=== PATIENT | male | born 1950 | race Caucasian/White ===

== ENCOUNTER 2016-09-27 07:10 | Outpatient (CLI) | payer MEDICARE, OTHER | END 2016-09-27 07:11 | disposition home or self-care (01) | DX: R63.4 Abnormal weight loss (principal); Z12.5 Encounter for screening for malignant neoplasm of prostate; E78.5 Hyperlipidemia, unspecified; I10 Essential (primary) hypertension | CPT/HCPCS: 36415; 80053; 80061; 85025; G0103 ==

== ENCOUNTER 2016-10-20 14:40 | Outpatient (CLI) | payer MEDICARE, OTHER | END 2016-10-20 23:59 | DX: R30.0 Dysuria (principal) ==

== ENCOUNTER 2017-04-12 07:50 | Outpatient (CLI) | payer MEDICARE, OTHER | END 2017-04-12 07:51 | disposition critical access hospital (66) | LOC: EMS 07:50 | PROVIDERS: ATTEND Surgery | DX: F41.9 Anxiety disorder, unspecified (principal) | CPT/HCPCS: A0425; A0429 ==

== ENCOUNTER 2017-04-12 08:08 | Emergency (ER) | payer MEDICARE, OTHER ==
[2017-04-12] MEDS ORDERED: clonazePAM 0.5 MG TABLET PO STA (08:18)
[2017-04-12] MEDS ORDERED: clonazePAM 0.5 MG TABLET PO ONE (08:26)
--- NOTE | 2017-04-12 10:13 | ED Physician Documentation ---
History of Present Illness - Stated complaint Stated Complaint: ANXIETY - Chief complaint Chief Complaint: General - History obtained from History obtained from: Patient, EMS - Additonal information Additional information: The patient is a 66-year-old male who arrives via ambulance from [facility] where he was anxious and requesting his antianxiety medication. He has been out of clonazepam for the past 3 days. He has been receiving all of his other medications. He denies headache, chest pain, shortness of breath. He denies abdominal pain, vomiting, or dysuria. It is unclear to me why he is out of his clonazepam, but he states there is a prescription at the pharmacy, and he just needs the medication to be delivered. Review of Systems Constitutional: denies: Fever Ears: denies: Tinnitus/ringing Nose: denies: Congestion Throat: denies: Sore throat Cardiac: denies: Chest pain / pressure Respiratory: denies: Dyspnea, Cough GI: reports: Abdominal Pain (Intermittent epigastric discomfort, consistent with gastroesophageal reflux.). denies: Nausea, Vomiting : denies: Dysuria Skin: denies: Rash Musculoskeletal: denies: Back pain, Extremity swelling Neurologic: denies: Focal weakness, Numbness, Headache Psychiatric: reports: Anxiety PD PAST MEDICAL HISTORY - Past Medical History Cardiovascular: Hypertension, High cholesterol Respiratory: None Neuro: None Endocrine/Autoimmune: None GI: GERD, Hemorrhoids, Other (Hiatal hernia, with Henriquez's esophagus.) : Other HEENT: Chronic vision loss Psych: Depression, Anxiety, Panic attacks Musculoskeletal: Gout, Fatigue Derm: None - Past Surgical History Past Surgical History: Yes General: Cholecystectomy - Present Medications Home Medications: Ambulatory Orders Medication Instructions Recorded Confirmed Clonazepam 1 mg PO BID 08/26/13 02/11/16 Lisinopril 20 mg PO BID 08/26/13 02/11/16 Simvastatin [Zocor] 20 mg PO DAILY 08/26/13 02/11/16 Escitalopram Oxalate [Lexapro] 20 mg PO DAILY 01/20/15 02/11/16 Sucralfate 1 gm PO QID #120 tablet 08/13/15 02/11/16 Loratadine [Claritin] 10 mg PO DAILY 08/18/15 02/11/16 Omeprazole [Prilosec] 20 mg PO TID 08/18/15 02/11/16 - Allergies Allergies/Adverse Reactions: Allergies Allergy/AdvReac Type Severity Reaction Status Date / Time No Known Drug Allergies Allergy Verified 04/12/17 08:19 - Living Situation Living Arrangement: reports: Assisted living - Social History Does the pt smoke?: No Smoking Status: Never smoker Does the pt drink ETOH?: Yes Does the pt have substance abuse?: No - Immunizations Immunizations are current?: Yes - POLST Patient has POLST: No PD ED PE NORMAL - Vitals Vital signs reviewed: Yes (borderline hypertension initially.) - General General: Alert and oriented X 3, No acute distress, Well developed/nourished - HEENT HEENT: Atraumatic, EOMI, Moist mucous membranes - Neck Neck: No adenopathy, No JVD - Cardiac Cardiac: RRR, No murmur - Respiratory Respiratory: No respiratory distress, Clear bilaterally - Abdomen Abdomen: Soft, Non tender, No organomegaly - Back Back: No CVA TTP - Derm Derm: No rash - Extremities Extremities: No edema, No calf tenderness / cord - Neuro Neuro: Alert and oriented X 3, No motor deficit, No sensory deficit - Psych Psych: Other (Mild anxiety.) Results - Vitals Vitals: Oxygen O2 Source Room air PD MEDICAL DECISION MAKING - ED course Complexity details: reviewed old records, re-evaluated patient, considered differential, d/w patient ED course: The patient's presentation is most consistent with mild anxiety after having gone without his daily clonazepam dose for the past 3 days. He does not appear to be in significant distress and his symptoms are not suggestive of acute withdrawal syndrome. Treatment in the emergency department included administration of clonazepam 1 mg orally. Contact was made with staff at [facility], and they confirm that the patient's medication will be delivered from the pharmacy. I discussed with him outpatient follow-up with his primary physician, as well as potentially worrisome signs or symptoms that should prompt reevaluation in the emergency department. Departure - Departure Disposition: 01 Home, Self Care Clinical Impression: Anxiety GERD (gastroesophageal reflux disease) Qualifiers: Esophagitis presence: esophagitis presence not specified Qualified Code(s): K21.9 - Gastro-esophageal reflux disease without esophagitis Condition: Stable Instructions: ED Stress React, ED GERD Follow-Up: IVAN LUONG MD [Physician No Access] - Comments: Continue taking clonazepam as previously prescribed. You can use liquid antacid, such as Maalox or Mylanta, 30 mL, as needed for epigastric discomfort. Follow up with your primary physician within 2 weeks. Call to schedule an appointment. Return to the emergency department if you develop increasing epigastric discomfort, recurrent or increasing anxiety, or otherwise worsening symptoms. Discharge Date/Time: 04/12/17 10:44
[2017-04-12 10:43] VITALS: BP 144/88
== END 2017-04-12 10:44 | disposition home or self-care (01) ==
LOC: EDUNIT# → ED 08:08
DX: F41.9 Anxiety disorder, unspecified (principal); T42.4X6A Underdosing of benzodiazepines, initial encounter; K21.9 Gastro-esophageal reflux disease without esophagitis; I10 Essential (primary) hypertension; E78.00 Pure hypercholesterolemia, unspecified; K22.70 Barrett's esophagus without dysplasia; K44.9 Diaphragmatic hernia without obstruction or gangrene; M10.9 Gout, unspecified
CPT/HCPCS: 99283; A9270

== ENCOUNTER 2017-07-16 18:33 | Outpatient (CLI) | payer MEDICARE, OTHER | END 2017-07-16 18:34 | disposition critical access hospital (66) | LOC: EMS 18:33 | PROVIDERS: ATTEND Surgery | DX: R50.9 Fever, unspecified (principal); F41.9 Anxiety disorder, unspecified | CPT/HCPCS: A0425; A0429 ==

== ENCOUNTER 2017-07-16 18:53 | Emergency (ER) | payer MEDICARE, OTHER ==
[2017-07-16] MEDS ORDERED: ACETAMINOPHEN 325 MG TABLET PO STA (18:58)
--- NOTE | 2017-07-16 18:59 | ED Physician Documentation ---
History of Present Illness - Stated complaint Stated Complaint: ANXIETY - Chief complaint Chief Complaint: General - History obtained from History obtained from: Patient, EMS - History of Present Illness Timing: Today Pain level max: 0 Pain level now: 0 Improved by: nothing Worsened by: nothing - Additonal information Additional information: Patient is a 66-year-old gentleman who lives at [place]. He states he has been coughing for the past few days, bringing up white phlegm. Started having fevers today. Denies any abdominal pain, nausea, vomiting. Review of Systems Ten Systems: 10 systems reviewed and negative Constitutional: reports: Fever Ears: denies: Ear pain Nose: reports: Rhinorrhea / runny nose, Congestion Cardiac: denies: Chest pain / pressure Respiratory: reports: Cough. denies: Dyspnea, Hemoptysis, Wheezing GI: denies: Abdominal Pain, Nausea, Vomiting, Diarrhea Skin: denies: Rash Musculoskeletal: denies: Neck pain, Back pain Neurologic: denies: Focal weakness, Numbness, Headache PD PAST MEDICAL HISTORY - Past Medical History Past Medical History: Yes Cardiovascular: Hypertension, High cholesterol Respiratory: None Neuro: None Endocrine/Autoimmune: None GI: GERD, Hemorrhoids, Other (Hiatal hernia, with Henriquez's esophagus.) : Other HEENT: Chronic vision loss Psych: Depression, Anxiety, Panic attacks Musculoskeletal: Gout, Fatigue Derm: None - Past Surgical History Past Surgical History: Yes General: Cholecystectomy - Present Medications Home Medications: Ambulatory Orders Medication Instructions Recorded Confirmed Clonazepam 1 mg PO DAILY 08/26/13 07/16/17 Simvastatin [Zocor] 20 mg PO DAILY 08/26/13 07/16/17 Sucralfate 1 gm PO QID #120 tablet 08/13/15 07/16/17 Omeprazole [Prilosec] 20 mg PO TID 08/18/15 07/16/17 Buspirone HCl 15 mg PO BID 07/16/17 07/16/17 Docusate Sodium 100 mg PO BID 07/16/17 07/16/17 Escitalopram Oxalate [Lexapro] 20 mg PO DAILY 07/16/17 07/16/17 Fluticasone [Flonase] 1 spray GEORGES BID 07/16/17 07/16/17 Lisinopril 1 tab PO DAILY 07/16/17 07/16/17 Loratadine 1 cap PO DAILY 07/16/17 07/16/17 Multivit-Min/Iron Fum/Folic AC 1 tab PO DAILY 07/16/17 07/16/17 [[id number]-[id number]-Nrlgbdqb Tablet] Tamsulosin [Flomax] 1 cap PO DAILY 07/16/17 07/16/17 - Allergies Allergies/Adverse Reactions: Allergies Allergy/AdvReac Type Severity Reaction Status Date / Time No Known Drug Allergies Allergy Verified 04/12/17 08:19 - Social History Does the pt smoke?: No Smoking Status: Never smoker Does the pt drink ETOH?: Yes Does the pt have substance abuse?: No - Immunizations Immunizations are current?: Yes - POLST Patient has POLST: No PD ED PE NORMAL - Vitals Vital signs reviewed: Yes - General General: Alert and oriented X 3, No acute distress - HEENT HEENT: Ears normal, Moist mucous membranes, Pharynx benign - Neck Neck: Supple, no meningeal sign - Cardiac Cardiac: RRR - Respiratory Respiratory: No respiratory distress, Clear bilaterally - Abdomen Abdomen: Soft, Non tender, Non distended - Derm Derm: Warm and dry - Neuro Neuro: Alert and oriented X 3 - Psych Psych: Normal mood, Normal affect Results - Vitals Vitals: Vital Signs - 24 hr 07/16/17 07/16/17 07/16/17 18:53 19:27 19:57 Temperature 38.6 C H 37.6 C H Heart Rate 100 97 Respiratory 18 17 17 Rate Blood Pressure 143/94 H 134/91 H O2 Saturation 100 100 07/16/17 21:10 Temperature Heart Rate 91 Respiratory 16 Rate Blood Pressure 127/76 O2 Saturation 97 Oxygen O2 Source Room air - Rads (name of study) cxr Radiology: Prelim report reviewed, EMP read contemporaneously, See rad report ( normal) PD MEDICAL DECISION MAKING - ED course Complexity details: reviewed results, re-evaluated patient, considered differential, d/w patient ED course: Patient is a 66-year-old male who presents to the emergency department what appears to be a viral upper respiratory infection. He is well-appearing, nontoxic. Afebrile. No hypoxia. Negative chest x-ray. We will continue supportive care and follow-up with his doctor. Patient counseled regarding signs and symptoms for which I believe and urgent re-evaluation would be necessary. Patient with good understanding of and agreement to plan and is comfortable going home at this time This document was made in part using voice recognition software. While efforts are made to proofread this document, sound alike and grammatical errors may occur. Departure - Departure Disposition: Home, Self Care Clinical Impression: Viral URI Fever Qualifiers: Fever type: unspecified Qualified Code(s): R50.9 - Fever, unspecified Condition: Good Instructions: ED Viral Syndrome Follow-Up: Heladio Cary MD [Primary Care Provider] - Within 1 week Comments: You can use motrin or tylenol as needed for fever at home. You do not have pneumonia on your chest xray today. Discharge Date/Time: 07/16/17 21:25
--- NOTE | 2017-07-16 19:31 | XRAY Preliminary Report ---
Exam: XR CHEST 2 VIEW PA/LAT IMPRESSION: Normal 2-view chest radiography. [facility] SITE ID: [id number]
--- NOTE | 2017-07-16 19:33 | XRAY Report ---
EXAM: CHEST RADIOGRAPHY EXAM DATE: 07/16/2017 07:11 PM. CLINICAL HISTORY: Cough and fever. COMPARISON: 01/04/2016. TECHNIQUE: 2 views. FINDINGS: Lungs/Pleura: No focal opacities evident. No pleural effusion. No pneumothorax. Normal volumes. Mediastinum: Heart and mediastinal contours are unremarkable. Other: No compression fractures. IMPRESSION: Normal 2-view chest radiography. [facility] Referring Provider Line: [phone] SITE ID: [id number]
[2017-07-16 21:11] VITALS: BP 127/76
== END 2017-07-16 21:25 | disposition home or self-care (01) ==
LOC: ED 18:53
DX: J06.9 Acute upper respiratory infection, unspecified (principal); B97.89 Other viral agents as the cause of diseases classified elsewhere; R50.9 Fever, unspecified; I10 Essential (primary) hypertension; E78.00 Pure hypercholesterolemia, unspecified; K21.9 Gastro-esophageal reflux disease without esophagitis; M10.9 Gout, unspecified
CPT/HCPCS: 71020; 99283; A9270

== ENCOUNTER 2017-07-30 09:48 | Outpatient (CLI) | payer MEDICARE, OTHER | END 2017-07-30 09:49 | disposition critical access hospital (66) | LOC: EMS 09:48 | PROVIDERS: ATTEND Surgery | DX: K62.5 Hemorrhage of anus and rectum (principal) | CPT/HCPCS: A0425; A0427 ==

== ENCOUNTER 2017-07-30 10:04 | Emergency (ER) | payer MEDICARE, OTHER ==
[2017-07-30 10:29] LABS: BASOPHILS % (AUTO) 0.8 %; EOSINOPHILS % (AUTO) 0.3 %; LYMPHOCYTES # (AUTO) 1.3 10^3/uL (1.5-3.5); LYMPHOCYTES % (AUTO) 27.9 %; MEAN CORPUSCULAR HEMOGLOBIN 30.5 pg (27.0-31.0); MEAN CORPUSCULAR HGB CONC 33.9 g/dL (32.0-36.0); MEAN CORPUSCULAR VOLUME 89.8 fL (80.0-94.0); MONOCYTES # (AUTO) 0.3 10^3/uL (0.0-1.0); MONOCYTES % (AUTO) 6.7 %; NEUTROPHILS # (AUTO) 2.9 10^3/uL (1.5-6.6); NEUTROPHILS % (AUTO) 64.3 %; PLT - PLATELET COUNT 372 10^3/uL (130-450); RED BLOOD COUNT 3.95 10^6/uL (4.70-6.10); RED CELL DISTRIBUTION WIDTH 13.2 % (12.0-15.0); WHITE BLOOD COUNT 4.5 x10^3/uL (4.8-10.8)
[2017-07-30 10:45] LABS: ALBUMIN 3.4 g/dL (3.2-5.5); ALBUMIN/GLOBULIN RATIO 1.2 (1.0-2.2); BILIRUBIN,TOTAL 0.4 mg/dL (0.2-1.0); CALCIUM 8.7 mg/dL (8.5-10.3); CREATININE 0.8 mg/dL (0.6-1.2); TOTAL PROTEIN 6.3 g/dL (6.7-8.2)
[2017-07-30 11:34] LABS: HGB - HEMOGLOBIN 11.3 g/dL (14.0-18.0); MEAN CORPUSCULAR HEMOGLOBIN 30.8 pg (27.0-31.0); MEAN CORPUSCULAR HGB CONC 34.5 g/dL (32.0-36.0); MEAN CORPUSCULAR VOLUME 89.3 fL (80.0-94.0); MEAN PLATELET VOLUME 7.1 fL (7.4-11.4); RED BLOOD COUNT 3.67 10^6/uL (4.70-6.10); RED CELL DISTRIBUTION WIDTH 13.1 % (12.0-15.0); WHITE BLOOD COUNT 4.8 x10^3/uL (4.8-10.8)
--- NOTE | 2017-07-30 12:47 | ED Physician Documentation ---
History of Present Illness - Stated complaint Stated Complaint: MALE - Chief complaint Chief Complaint: Abd Pain - History obtained from History obtained from: Patient - History of Present Illness Timing: Today Pain level max: 3 Pain level now: 3 Improved by: nothing Worsened by: bowl prep - Additonal information Additional information: Patient is a 66 yo M with rectal bleeding after his colonoscopy prep today. States now resolved. Had some cramping with the prep as well. This is now resolved as well. states eyes were burning last week, now resolved. Also has redness to the scrotum that is now improving with a cream from his doctor. Review of Systems Ten Systems: 10 systems reviewed and negative Constitutional: denies: Fever, Chills Ears: denies: Ear pain Nose: denies: Rhinorrhea / runny nose, Congestion Throat: denies: Sore throat Cardiac: denies: Chest pain / pressure Respiratory: denies: Cough GI: reports: Other (BRBPR today x 1). denies: Nausea, Vomiting, Diarrhea : reports: Dysuria (for 6 months, since starting flomax. no changes) Skin: denies: Rash Musculoskeletal: denies: Neck pain, Back pain PD PAST MEDICAL HISTORY - Past Medical History Cardiovascular: Hypertension, High cholesterol Respiratory: None Neuro: None Endocrine/Autoimmune: None GI: GERD, Hemorrhoids, Other : Other HEENT: Chronic vision loss Psych: Depression, Anxiety, Panic attacks Musculoskeletal: Gout, Fatigue Derm: None - Past Surgical History Past Surgical History: Yes General: Cholecystectomy - Present Medications Home Medications: Ambulatory Orders Medication Instructions Recorded Confirmed Clonazepam 1 mg PO DAILY 08/26/13 07/16/17 Simvastatin [Zocor] 20 mg PO DAILY 08/26/13 07/16/17 Sucralfate 1 gm PO QID #120 tablet 08/13/15 07/16/17 Omeprazole [Prilosec] 20 mg PO TID 08/18/15 07/16/17 Buspirone HCl 15 mg PO BID 07/16/17 07/16/17 Docusate Sodium 100 mg PO BID 07/16/17 07/16/17 Escitalopram Oxalate [Lexapro] 20 mg PO DAILY 07/16/17 07/16/17 Fluticasone [Flonase] 1 spray GEORGES BID 07/16/17 07/16/17 Lisinopril 1 tab PO DAILY 07/16/17 07/16/17 Loratadine 1 cap PO DAILY 07/16/17 07/16/17 Multivit-Min/Iron Fum/Folic AC 1 tab PO DAILY 07/16/17 07/16/17 [Vjpfj-Mytalyq-Fbnhohix Tablet] Tamsulosin [Flomax] 1 cap PO DAILY 07/16/17 07/16/17 - Allergies Allergies/Adverse Reactions: Allergies Allergy/AdvReac Type Severity Reaction Status Date / Time No Known Drug Allergies Allergy Verified 07/30/17 10:11 - Social History Does the pt smoke?: No Smoking Status: Never smoker Does the pt drink ETOH?: Yes Does the pt have substance abuse?: No - Immunizations Immunizations are current?: Yes - POLST Patient has POLST: No PD ED PE NORMAL - Vitals Vital signs reviewed: Yes - General General: Alert and oriented X 3, No acute distress, Well developed/nourished - HEENT HEENT: PERRL, Moist mucous membranes - Neck Neck: Supple, no meningeal sign - Cardiac Cardiac: RRR, Strong equal pulses - Respiratory Respiratory: No respiratory distress, Clear bilaterally - Abdomen Abdomen: Soft, Non tender, Non distended - Male Male : Other (no active scrotal bleeding, small rash present) - Rectal Rectal: Other (no active bleeding. hemoccult negative. QC passed) - Derm Derm: Warm and dry - Neuro Neuro: Alert and oriented X 3 - Psych Psych: Normal mood, Normal affect Results - Vitals Vitals: Vital Signs - 24 hr 07/30/17 07/30/17 10:06 11:59 Temperature 37 C 36.8 C Heart Rate 73 59 L Respiratory 18 20 Rate Blood Pressure 130/86 H 137/84 H O2 Saturation 100 100 Oxygen O2 Source Room air - Labs Labs: Laboratory Tests 07/30/17 07/30/17 07/30/17 10:24 10:24 10:24 WBC 4.5 L RBC 3.95 L Hgb 12.0 L Hct 35.4 L MCV 89.8 MCH 30.5 MCHC 33.9 RDW 13.2 Plt Count 372 MPV 7.0 L Neut # 2.9 Lymph # 1.3 L Luna # 0.3 Eos # 0.0 Baso # 0.0 Absolute Nucleated RBC 0.00 Nucleated RBC % 0.0 Whole Blood INR APTT 27.3 Sodium 138 Potassium 3.9 Chloride 103 Carbon Dioxide 23 Anion Gap 12.0 BUN 9 Creatinine 0.8 Estimated GFR (MDRD) 97 Glucose 115 H Calcium 8.7 Total Bilirubin 0.4 AST 21 ALT 21 Alkaline Phosphatase 49 Total Protein 6.3 L Albumin 3.4 Globulin 2.9 Albumin/Globulin Ratio 1.2 Lipase 31 Blood Type Blood Type Recheck Antibody Screen 07/30/17 07/30/17 07/30/17 10:45 11:20 11:20 WBC 4.8 RBC 3.67 L Hgb 11.3 L Hct 32.7 L MCV 89.3 MCH 30.8 MCHC 34.5 RDW 13.1 Plt Count 330 MPV 7.1 L Neut # Lymph # Luna # Eos # Baso # Absolute Nucleated RBC Nucleated RBC % Whole Blood INR APTT Sodium Potassium Chloride Carbon Dioxide Anion Gap BUN Creatinine Estimated GFR (MDRD) Glucose Calcium Total Bilirubin AST ALT Alkaline Phosphatase Total Protein Albumin Globulin Albumin/Globulin Ratio Lipase Blood Type A POSITIVE Blood Type Recheck A POSITIVE Antibody Screen NEGATIVE 07/30/17 11:20 WBC RBC Hgb Hct MCV MCH MCHC RDW Plt Count MPV Neut # Lymph # Luna # Eos # Baso # Absolute Nucleated RBC Nucleated RBC % Whole Blood INR 1.1 APTT Sodium Potassium Chloride Carbon Dioxide Anion Gap BUN Creatinine Estimated GFR (MDRD) Glucose Calcium Total Bilirubin AST ALT Alkaline Phosphatase Total Protein Albumin Globulin Albumin/Globulin Ratio Lipase Blood Type Blood Type Recheck Antibody Screen PD MEDICAL DECISION MAKING - ED course Complexity details: reviewed old records, reviewed results, re-evaluated patient , considered differential, d/w patient ED course: Patient is a 66-year-old male who complains of rectal bleeding 1 today after colonoscopy prep. No active bleeding currently. Does have small hemorrhoids on exam. He has a colonoscopy scheduled for tomorrow. Vital signs are stable. Abdomen is soft, nontender nondistended. No other acute medical issues at this time. We will have him follow-up with his doctor for further evaluation and care and follow-up with his doctor tomorrow for the colonoscopy as scheduled. Patient counseled regarding signs and symptoms for which I believe and urgent re-evaluation would be necessary. Patient with good understanding of and agreement to plan and is comfortable going home at this time This document was made in part using voice recognition software. While efforts are made to proofread this document, sound alike and grammatical errors may occur. Departure - Departure Disposition: 01 Home, Self Care Clinical Impression: Hematochezia Condition: Good Instructions: ED Hematochezia Stable Follow-Up: Heladio Cary MD [Primary Care Provider] - Within 1 week Comments: follow up tomorrow for your colonoscopy as scheduled. Return if you worsen.
[2017-07-30 13:09] VITALS: BP 151/92
== END 2017-07-30 13:16 | disposition home or self-care (01) ==
LOC: EDUNIT# → ED 10:04
DX: K92.1 Melena (principal); K64.9 Unspecified hemorrhoids; R21 Rash and other nonspecific skin eruption; I10 Essential (primary) hypertension
CPT/HCPCS: 36415; 80053; 83690; 85025; 85610; 85730; 86850; 86900; 86901; 99283; 99284

== ENCOUNTER 2017-07-31 06:55 | Day surgery (SDC) | payer MEDICARE, OTHER ==
[2017-07-31] MEDS ORDERED: LACTATED RINGERS 1,000 ML IV ONE (07:35)
[2017-07-31] MEDS ORDERED: MIDAZOLAM 2 MG/2 ML VIAL IVP ONE (08:33)
[2017-07-31] MEDS ORDERED: fentaNYL 100 MCG/2 ML VIAL IVP ONE (08:33)
[2017-07-31 10:08] VITALS: BP 126/63
== END 2017-07-31 06:56 | disposition home or self-care (01) ==
LOC: SDS 06:55
PROVIDERS: ATTEND Surgery
PROC: 0DJD8ZZ Inspection of Lower Intestinal Tract, Via Natural or Artificial Opening Endoscopic (ICD-10-PCS; principal; 2017-07-31 08:30)
DX: K92.1 Melena (principal); K64.4 Residual hemorrhoidal skin tags; K64.8 Other hemorrhoids; I10 Essential (primary) hypertension; E78.5 Hyperlipidemia, unspecified; F32.9 Major depressive disorder, single episode, unspecified; F41.9 Anxiety disorder, unspecified
CPT/HCPCS: 45378; J7120

== ENCOUNTER 2017-08-24 09:17 | Day surgery (SDC) | payer MEDICARE, OTHER ==
[2017-08-24] MEDS ORDERED: LACTATED RINGERS 1,000 ML IV ONE (10:03)
[2017-08-24] MEDS ORDERED: LIDOCAINE MPF 1%-EPI 1:200000 30 ML VIAL SUBQ ONE ×2 (10:47→10:51)
[2017-08-24] MEDS ORDERED: BUPIVACAINE 0.5% PF 30 ML VIAL INFIL ONE ×2 (10:47→10:51)
[2017-08-24] MEDS ORDERED: ACETAMINOPHEN 1,000 MG/100 ML 100 ML IV ONE (11:30)
[2017-08-24] MEDS ORDERED: ONDANSETRON 4 MG/2 ML VIAL IVP ONE (11:30)
[2017-08-24] MEDS ORDERED: ROCURONIUM 50 MG/5 ML VIAL IVP ONE (11:30)
[2017-08-24] MEDS ORDERED: fentaNYL 100 MCG/2 ML VIAL IVP ONE (11:30)
[2017-08-24] MEDS ORDERED: LIDOCAINE-MPF 2% 5 ML VIAL IM ONE (11:30)
[2017-08-24] MEDS ORDERED: NEOSTIGMINE 1 MG/1 ML 10 ML MDV IVP ONE (11:30)
[2017-08-24] MEDS ORDERED: PROPOFOL 200 MG/20 ML VIAL IVP ONE (11:30)
[2017-08-24] MEDS ORDERED: DEXAMETHASONE 4 MG/ML VIAL IVP ONE (11:30)
[2017-08-24] MEDS ORDERED: GLYCOPYRROLATE 1 MG/5 ML VIAL IVP ONE (11:30)
[2017-08-24] MEDS ORDERED: MEPERIDINE 50 MG/ML SYRINGE ONE (11:32)
[2017-08-24 13:16] VITALS: BP 148/88
--- NOTE | 2017-08-29 13:55 | OPERATIVE REPORT ---
DATE OF SERVICE: 08/24/2017 Physician: Jareth Gasca MD PREOPERATIVE DIAGNOSIS: Grade 4 bleeding hemorrhoids. POSTOPERATIVE DIAGNOSIS: Grade 4 bleeding hemorrhoids. PROCEDURES 1. Hemorrhoidectomy. 2. Rectal exam under anesthesia. OPERATING SURGEON: Jareth Gasca MD ANESTHESIA: General. INDICATION FOR PROCEDURE: Patient is a 66-year-old male who has had continuing ongoing rectal bleeding after bowel movements. On physical exam, he has a grade 4 hemorrhoidal disease located at the 12-o'clock position, with other hemorrhoids being present. He would like to undergo a hemorrhoidectomy. FINDINGS AT SURGERY: Patient had a large grade 4 hemorrhoid at the 12-o'clock position that was extensive. He also had further external hemorrhoids at the 5 and 7-o'clock position. Because of the large size of the excision at the 12-o'clock position, only this area was dealt with. This was the area that was prolapsing the worst and causing the bleeding. PROCEDURE: After informed consent was obtained, patient was taken to the operating room and placed in a supine position. General endotracheal anesthesia was administered. The patient was placed in a lithotomy position. His anal area was then prepped and draped in the usual sterile fashion. Rectal exam was then performed. The speculum was then inserted, and looked. He had large internal hemorrhoids that were located circumferentially around the anal area. He had large external hemorrhoids being present with the largest at the 12-o'clock position. A 3-0 Vicryl suture was then used to high ligate the base of the hemorrhoid once the retractor had been placed into the anal canal. A circumferential anal block was then performed using 0.25% Marcaine. An incision was then used to incise the anoderm, with the incision to include the hemorrhoid at the 12-o'clock position. The incision was carried into the anal canal and met at the sutured area. This encompassed the tissue from the 11-o'clock to the 1-o'clock position. Next, using electrocautery, the hemorrhoid was then removed from the sphincter complex. This was carried to the ligated base of the appendix, with it then being divided. Hemostasis was obtained using electrocautery. The anal canal mucosa was then sutured with the 3-0 Vicryl suture, with it being carried out onto the anoderm, leaving a small opening at its apex being open. There was no significant bleeding at this point. A dry dressing was then applied. The patient was then taken out of the lithotomy position, awakened, extubated, and taken from the operating room in stable condition. ESTIMATED BLOOD LOSS: Less than 10 mL COMPLICATIONS: None. CONDITION OF THE PATIENT AT THE END OF THE PROCEDURE: Stable. SPECIMENS: Hemorrhoidal tissue. DRAINS/PACKS: None. CLASSIFICATION OF THE WOUND: Clean/contaminated. TD: 08/27/2017 21:07
== END 2017-08-24 09:18 | disposition home or self-care (01) ==
LOC: SDS 09:17
PROVIDERS: ATTEND Surgery
PROC: 06BY0ZC Excision of Hemorrhoidal Plexus, Open Approach (ICD-10-PCS; principal; 2017-08-24 10:45)
DX: K64.3 Fourth degree hemorrhoids (principal)
CPT/HCPCS: 46260; J0131; J7120

== ENCOUNTER 2017-09-26 14:15 | Outpatient (CLI) | payer MEDICARE, OTHER ==
[2017-09-26 19:07] LABS: CREATININE 0.8 mg/dL (0.6-1.2)
== END 2017-09-26 14:16 | disposition home or self-care (01) ==
LOC: LAB.WCP 14:15
PROVIDERS: ATTEND Family Medicine
DX: R25.2 Cramp and spasm (principal)
CPT/HCPCS: 36415; 80048

== ENCOUNTER 2017-11-13 15:54 | Outpatient (CLI) | payer MEDICARE, OTHER | END 2017-11-13 15:55 | disposition EMS.NT | LOC: EMS 15:54 | PROVIDERS: ATTEND Surgery | DX: Z03.89 Encounter for observation for other suspected diseases and conditions ruled out (principal) ==

== ENCOUNTER 2018-05-10 14:24 | Outpatient (CLI) | payer MEDICARE, OTHER ==
[2018-05-10 18:46] LABS: BASOPHILS % (AUTO) 0.8 %; BILIRUBIN,URINE NEGATIVE (NEGATIVE); EOSINOPHILS # (AUTO) 0.1 10^3/uL (0.0-0.7); EOSINOPHILS % (AUTO) 1.1 %; GLUCOSE, URINE (UA) NEGATIVE (NEGATIVE); HGB - HEMOGLOBIN 12.7 g/dL (14.0-18.0); KETONES,URINE (UA) NEGATIVE (NEGATIVE); LEUKOCYTE ESTERASE, URINE NEGATIVE (NEGATIVE); LYMPHOCYTES # (AUTO) 1.5 10^3/uL (1.5-3.5); LYMPHOCYTES % (AUTO) 31.3 %; MEAN CORPUSCULAR HEMOGLOBIN 30.5 pg (27.0-31.0); MEAN CORPUSCULAR HGB CONC 33.6 g/dL (32.0-36.0); MEAN CORPUSCULAR VOLUME 90.7 fL (80.0-94.0); MEAN PLATELET VOLUME 8.2 fL (7.4-11.4); MONOCYTES # (AUTO) 0.4 10^3/uL (0.0-1.0); MONOCYTES % (AUTO) 7.4 %; NEUTROPHILS # (AUTO) 2.8 10^3/uL (1.5-6.6); NEUTROPHILS % (AUTO) 59.4 %; NITRITE,URINE NEGATIVE (NEGATIVE); OCCULT BLOOD,URINE NEGATIVE (NEGATIVE); PH,URINE 5.5 PH (5.0-7.5); PLT - PLATELET COUNT 212 10^3/uL (130-450); PROTEIN,URINE NEGATIVE (NEGATIVE); RED BLOOD COUNT 4.16 10^6/uL (4.70-6.10); RED CELL DISTRIBUTION WIDTH 13.8 % (12.0-15.0); UROBILINOGEN,URINE 0.2 (NORMAL) E.U./dL (NORMAL); WHITE BLOOD COUNT 4.8 x10^3/uL (4.8-10.8)
[2018-05-10 18:50] LABS: ALBUMIN 3.9 g/dL (3.2-5.5); ALBUMIN/GLOBULIN RATIO 1.2 (1.0-2.2); BILIRUBIN,TOTAL 0.6 mg/dL (0.2-1.0); CALCIUM 8.8 mg/dL (8.5-10.3); CREATININE 0.9 mg/dL (0.6-1.2); TOTAL PROTEIN 7.1 g/dL (6.7-8.2)
[2018-05-10 19:14] LABS: BACTERIA,URINE None Seen /HPF (None Seen); CLARITY,URINE CLEAR (CLEAR); RBC,URINE None Seen /HPF (0-5); SQUAMOUS EPITHELIAL CELL,UR NONE SEEN (<= Few)
== END 2018-05-10 14:25 | disposition home or self-care (01) ==
LOC: LAB.WCP 14:24
PROVIDERS: ATTEND Family Medicine
DX: R30.0 Dysuria (principal)
CPT/HCPCS: 36415; 80053; 81001; 85025; 87086

== ENCOUNTER 2018-05-24 09:51 | Outpatient (CLI) | payer MEDICARE, OTHER ==
[2018-05-24 13:34] LABS: CALCIUM 9.2 mg/dL (8.5-10.3); CREATININE 0.6 mg/dL (0.6-1.2)
== END 2018-05-24 09:52 | disposition home or self-care (01) ==
LOC: LAB.WCP 09:51
PROVIDERS: ATTEND Family Medicine
DX: I10 Essential (primary) hypertension (principal)
CPT/HCPCS: 36415; 80048

== ENCOUNTER 2018-06-27 08:00 | Outpatient (CLI) | payer MEDICARE, OTHER | END 2018-06-27 23:59 | disposition home or self-care (01) | LOC: LAB.WCP 08:00 | PROVIDERS: ATTEND Family Medicine | DX: R39.16 Straining to void (principal) | CPT/HCPCS: 36415; 84153 ==

== ENCOUNTER 2018-08-19 11:10 | Day surgery (SDC) | payer MEDICARE, OTHER ==
[2018-08-19] MEDS ORDERED: LACTATED RINGERS 1,000 ML IV ONE (11:23)
[2018-08-19] MEDS ORDERED: MIDAZOLAM 2 MG/2 ML VIAL IVP ONE (13:14)
[2018-08-19] MEDS ORDERED: fentaNYL 100 MCG/2 ML VIAL IVP ONE (13:14)
[2018-08-19] MEDS ORDERED: LIDO GARGLE 30 ML BOTTLE PO ONE (13:19)
[2018-08-19] MEDS ORDERED: BENZOCAINE/TETRACAINE/BUTAMBEN 20 GM TOP ONE (13:20)
[2018-08-19 13:47] VITALS: BP 127/68
== END 2018-08-19 11:11 | disposition home or self-care (01) ==
LOC: SDS 11:10
PROVIDERS: ATTEND Surgery
PROC: 0DB78ZX Excision of Stomach, Pylorus, Via Natural or Artificial Opening Endoscopic, Diagnostic (ICD-10-PCS; 2018-08-19)
PROC: 0DB58ZX Excision of Esophagus, Via Natural or Artificial Opening Endoscopic, Diagnostic (ICD-10-PCS; principal; 2018-08-19 13:00)
DX: K22.70 Barrett's esophagus without dysplasia (principal); K21.0 Gastro-esophageal reflux disease with esophagitis; K29.40 Chronic atrophic gastritis without bleeding; I10 Essential (primary) hypertension; E78.5 Hyperlipidemia, unspecified
CPT/HCPCS: 43239; 87081; A9270; J7120

== ENCOUNTER 2018-09-26 08:00 | Outpatient (CLI) | payer MEDICARE, OTHER ==
[2018-09-26 19:22] LABS: PSA FREE 0.16 ng/mL (0.16-2.81); PSA TOTAL 0.39 ng/mL (0.000-2.000)
== END 2018-09-26 23:59 ==
LOC: LAB.WCP 08:00
PROVIDERS: ATTEND Family Medicine
DX: N40.0 Benign prostatic hyperplasia without lower urinary tract symptoms (principal)
CPT/HCPCS: 36415; 84153; 84154

== ENCOUNTER 2019-04-09 08:00 | Outpatient (CLI) | payer MEDICARE, OTHER ==
[2019-04-09 18:19] LABS: BASOPHILS % (AUTO) 0.6 %; EOSINOPHILS % (AUTO) 0.6 %; HGB - HEMOGLOBIN 12.9 g/dL (14.0-18.0); LYMPHOCYTES # (AUTO) 1.8 10^3/uL (1.5-3.5); MEAN CORPUSCULAR HEMOGLOBIN 30.6 pg (27.0-31.0); MEAN CORPUSCULAR HGB CONC 32.7 g/dL (32.0-36.0); MEAN CORPUSCULAR VOLUME 93.6 fL (80.0-94.0); MEAN PLATELET VOLUME 10.7 fL (7.4-11.4); MONOCYTES # (AUTO) 0.4 10^3/uL (0.0-1.0); MONOCYTES % (AUTO) 7.4 %; NEUTROPHILS % (AUTO) 57.2 %; PLT - PLATELET COUNT 220 10^3/uL (130-450); RED BLOOD COUNT 4.21 10^6/uL (4.70-6.10); RED CELL DISTRIBUTION WIDTH 12.9 % (12.0-15.0); WHITE BLOOD COUNT 5.2 x10^3/uL (4.8-10.8)
[2019-04-09 18:45] LABS: ALBUMIN 4.1 g/dL (3.2-5.5); ALBUMIN/GLOBULIN RATIO 1.3 (1.0-2.2); ALKALINE PHOSPHATASE 57 IU/L (42-121); ALT ALANINE AMINOTRANSFERASE 17 IU/L (10-60); AST ASPARTATE AMINOTRANSFERASE 20 IU/L (10-42); BILIRUBIN,TOTAL 0.5 mg/dL (0.2-1.0); BUN - BLOOD UREA NITROGEN 14 mg/dL (6-20); CARBON DIOXIDE - CO2 33 mmol/L (21-32); CHLORIDE 100 mmol/L (101-111); CHOL/HDL RATIO 2.2 (<5.0); CHOLESTEROL 128 mg/dL; GFR - MDRD 74 (>89); GLUCOSE 101 mg/dL (70-100); HDL CHOLESTEROL 58 mg/dL; LDL CHOLESTEROL,CALCULATED 58 mg/dL; SODIUM 136 mmol/L (135-145); TOTAL PROTEIN 7.3 g/dL (6.7-8.2); VLDL CHOLESTEROL 12 mg/dL
== END 2019-04-09 23:59 | disposition home or self-care (01) ==
LOC: LAB.N 08:00
PROVIDERS: ATTEND Family Medicine
DX: E78.5 Hyperlipidemia, unspecified (principal); I10 Essential (primary) hypertension
CPT/HCPCS: 36415; 80053; 80061; 83721; 84443; 85025

== ENCOUNTER 2019-04-09 13:55 | Outpatient (CLI) | payer MEDICARE, OTHER ==
--- NOTE | 2019-04-09 19:07 | XRAY Report ---
Reason: neck and back pain Procedure Date: 04/09/2019 Accession Number: [id number] / [id number] Procedure: XRN - Cervical Spine 2 View CPT Code: FULL RESULT: EXAM: CERVICAL SPINE RADIOGRAPHY EXAM DATE: 04/09/2019 02:10 PM. CLINICAL HISTORY: Neck and back pain. COMPARISONS: None. TECHNIQUE: 3 views. FINDINGS: Alignment: Normal. No spondylolisthesis or scoliosis. Bones: The cervical vertebral bodies and posterior elements are well visualized from the skull base through C7-T1. No fractures. Some uncovertebral hypertrophic changes in the lower cervical spine. Disks: Mild disk height loss C5-C6 and C6-C7. Facets: Facet arthropathy, mild, greatest C5-C6. Soft Tissues: Normal. No prevertebral soft tissue swelling. The visualized lung apices are clear. IMPRESSION: Mild degenerative disk disease, greatest at C5-C6. No fracture or subluxation. [facility]
== END 2019-04-09 13:56 | disposition home or self-care (01) ==
LOC: DI.N 13:55
PROVIDERS: ATTEND Family Medicine
DX: M50.322 Other cervical disc degeneration at C5-C6 level (principal); E78.5 Hyperlipidemia, unspecified; I10 Essential (primary) hypertension
CPT/HCPCS: 36415; 72040; 80053; 80061; 83721; 84443; 85025

== ENCOUNTER 2019-04-16 08:45 | Outpatient (CLI) | payer MEDICARE, OTHER | END 2019-04-16 23:59 | disposition home or self-care (01) | LOC: LAB.R 08:45 | PROVIDERS: ATTEND Podiatrist | DX: L03.032 Cellulitis of left toe (principal) | CPT/HCPCS: 87070; 87077; 87181; 87205 ==

== ENCOUNTER 2019-09-04 17:47 | Outpatient (CLI) | payer MEDICARE, OTHER | END 2019-09-04 17:48 | disposition EMS.NT | LOC: EMS 17:47 | PROVIDERS: ATTEND Surgery | DX: Z71.1 Person with feared health complaint in whom no diagnosis is made (principal) ==

== ENCOUNTER 2020-08-31 07:00 | Outpatient (CLI) | payer MEDICARE, OTHER ==
[2020-08-31 18:03] LABS: BASOPHILS % (AUTO) 0.8 %; EOSINOPHILS # (AUTO) 0.1 10^3/uL (0.0-0.7); EOSINOPHILS % (AUTO) 1.8 %; HGB - HEMOGLOBIN 12.7 g/dL (14.0-18.0); LYMPHOCYTES # (AUTO) 1.7 10^3/uL (1.5-3.5); LYMPHOCYTES % (AUTO) 34.7 %; MEAN CORPUSCULAR HEMOGLOBIN 30.8 pg (27.0-31.0); MEAN CORPUSCULAR HGB CONC 31.7 g/dL (32.0-36.0); MEAN CORPUSCULAR VOLUME 97.1 fL (80.0-94.0); MEAN PLATELET VOLUME 10.8 fL (7.4-11.4); MONOCYTES # (AUTO) 0.3 10^3/uL (0.0-1.0); MONOCYTES % (AUTO) 6.8 %; NEUTROPHILS # (AUTO) 2.8 10^3/uL (1.5-6.6); NEUTROPHILS % (AUTO) 55.7 %; PLT - PLATELET COUNT 179 10^3/uL (130-450); RED BLOOD COUNT 4.13 10^6/uL (4.70-6.10); RED CELL DISTRIBUTION WIDTH 13.1 % (12.0-15.0)
[2020-08-31 18:23] LABS: ALBUMIN 3.8 g/dL (3.2-5.5); ALBUMIN/GLOBULIN RATIO 1.4 (1.0-2.2); BILIRUBIN,TOTAL 0.4 mg/dL (0.2-1.0); CALCIUM 9.1 mg/dL (8.5-10.3); CREATININE 0.9 mg/dL (0.6-1.2); TOTAL PROTEIN 6.5 g/dL (6.7-8.2)
== END 2020-08-31 23:59 | disposition home or self-care (01) ==
LOC: LAB.N 07:00
PROVIDERS: ATTEND Physician Assistant
DX: N40.0 Benign prostatic hyperplasia without lower urinary tract symptoms (principal); I10 Essential (primary) hypertension; E78.5 Hyperlipidemia, unspecified; Z12.5 Encounter for screening for malignant neoplasm of prostate
CPT/HCPCS: 36415; 80053; 84443; 85025; G0103; 84153

== ENCOUNTER 2021-09-22 10:05 | Outpatient (CLI) | payer MEDICARE, OTHER ==
--- NOTE | 2021-09-22 11:15 | Ultrasound Report ---
PROCEDURE: Bladder INDICATIONS: DIFFICULTY URINATING TECHNIQUE: Real-time scanning was performed of the kidneys and bladder, with image documentation. COMPARISON: CT abdomen and pelvis with contrast, 07/19/2014. FINDINGS: Bladder: Pre-void bladder volume is 352 mL. Post-void residual is 0 mL. Prostate is enlarged with an asymmetric volume of 42.5 cc. Miscellaneous: No free pelvic fluid. IMPRESSION: 1. Enlarged prostate. No significant post void residual in urinary bladder. Reviewed by: Ibeth Joe MD on 09/22/2021 11:13 AM PST Approved by: Ibeth Joe MD on 09/22/2021 11:13 AM PST Station ID: [id number]
== END 2021-09-22 10:06 | disposition home or self-care (01) ==
LOC: DI 10:05
PROVIDERS: ATTEND Student in an Organized Health Care Education/Training Program
DX: N40.1 Benign prostatic hyperplasia with lower urinary tract symptoms (principal); R39.11 Hesitancy of micturition

== ENCOUNTER 2023-01-29 06:37 | Outpatient (CLI) | payer MEDICARE, OTHER ==
--- NOTE | 2023-01-29 10:12 | Ultrasound Report ---
PROCEDURE: Abdomen Limited INDICATIONS: FATTY (CHANGE OF) LIVER TECHNIQUE: Real-time focused scanning was performed of the abdomen, with image documentation. COMPARISONS: None. FINDINGS: Liver: Increased liver echogenicity, commonly mild hepatic steatosis. Ischemic focus in the right he patic lobe measuring 0.5 cm. Gallbladder: Absent. Biliary ducts: Intrahepatic bile ducts are non-dilated. Extrahepatic bile duct caliber measures 5 m m. Normal is 6-7 mm or less in diameter, or 10 mm or less post-cholecystectomy. Pancreas: Visualized portions of the pancreas are sonographically normal. Right kidney: Normal in size and echotexture. Right kidney measures 9.6 cm long. No hydronephrosis o r nephrolithiasis. No solid masses. No complex renal cystic lesions which require follow-up. IMPRESSION: Mild hepatic steatosis. 5 mm hyperechoic lesion in the right inferior hepatic lobe, presumably a hemangioma in the absence of malignancy. Reviewed by: Joe Abad on 01/29/2023 10:10 AM PDT Approved by: Joe Abad on 01/29/2023 10:10 AM PDT Station ID: [id number]
== END 2023-01-29 06:38 | disposition home or self-care (01) ==
LOC: DI 06:37
PROVIDERS: ATTEND Student in an Organized Health Care Education/Training Program
DX: K76.0 Fatty (change of) liver, not elsewhere classified (principal); K76.9 Liver disease, unspecified; R19.7 Diarrhea, unspecified

== ENCOUNTER 2023-02-17 13:16 | Outpatient (CLI) | payer MEDICARE, OTHER | END 2023-02-17 23:59 | disposition critical access hospital (66) | LOC: EMS 13:16 | DX: R10.32 Left lower quadrant pain (principal); R10.814 Left lower quadrant abdominal tenderness | CPT/HCPCS: A0425; A0429 ==

== ENCOUNTER 2023-02-17 13:40 | Emergency (ER) | payer MEDICARE, OTHER ==
--- NOTE | 2023-02-17 13:56 | ED Physician Documentation ---
PD HPI ABD PAIN - Stated complaint Stated Complaint: LLQ PX - Chief complaint Chief Complaint: Abd Pain - History obtained from History obtained from: Patient - History of Present Illness Timing - onset: How many hours ago (this morning after awoke and had breakfast, onset left abd pain.), Today Timing - duration: Hours Timing - details: Gradual onset, Still present, Waxing and waning Quality: Cramping, Aching, Pain Location: LLQ Radiation: No: Lower back, Left flank Improved by: No: Laying still Worsened by: Palpation. No: Moving, Breathing Associated symptoms: No: Fever, Nausea, Vomiting, Diarrhea, Constipation (he states he has had small regular stools.) Similar symptoms before: Has not had sx before Recently seen: Not recently seen Review of Systems Constitutional: denies: Fever, Chills Cardiac: denies: Chest pain / pressure Respiratory: denies: Dyspnea, Cough GI: reports: Abdominal Pain. denies: Nausea, Vomiting, Diarrhea, Bloody / black stool : denies: Dysuria, Frequency Skin: denies: Rash PD PAST MEDICAL HISTORY - Past Medical History Cardiovascular: Hypertension Respiratory: None Endocrine/Autoimmune: None GI: GERD, Other : None HEENT: Other Psych: Anxiety Musculoskeletal: None Derm: None - Past Surgical History Past Surgical History: Yes General: Appendectomy, Other - Present Medications Home Medications: Ambulatory Orders Medication Instructions Recorded Confirmed Simvastatin [Zocor] 20 mg PO DAILY 08/26/13 08/16/18 Omeprazole [Prilosec] 20 mg PO TID 08/18/15 08/16/18 Docusate Sodium 100 mg PO BID PRN 07/16/17 08/16/18 Escitalopram Oxalate [Lexapro] 20 mg PO DAILY 07/16/17 08/16/18 Fluticasone [Flonase] 1 spray [place] BID 07/16/17 08/16/18 Loratadine 1 cap PO DAILY 07/16/17 08/16/18 Multivit-Min/Iron Fum/Folic AC 1 tab PO DAILY 07/16/17 08/16/18 [Gjqwm-Hohnohl-Nqscnbdy Tablet] Tamsulosin [Flomax] 1 cap PO DAILY 07/16/17 08/16/18 lisinopriL [Lisinopril] 1 tab PO DAILY 07/16/17 08/16/18 Buspirone HCl 30 mg PO BID 08/16/18 08/16/18 Sucralfate 1 gm PO BID 08/16/18 08/16/18 clonazePAM [Clonazepam] 2 mg PO TID 08/16/18 08/16/18 Acetaminophen 650 mg PO BID PRN 08/19/18 08/19/18 Ascorbic Acid [Vitamin C] 1,000 mg PO 08/19/18 Azelastine HCl 205.5 mcg NS BID PRN 08/19/18 08/19/18 Xczrlshtl-Cuoaihj-Oblvouqi-Pet 9 gm TP QID PRN 08/19/18 08/19/18 [Anbesol Cold Sore Ointment] Bismuth Subsalicylate [Kaopectate] 2 tab PO 08/19/18 Bismuth Subsalicylate 262 mg PO 08/19/18 [Pepto-Bismol] Ciprofloxacin/Ciprofloxa HCl 500 mg PO BID 08/19/18 08/19/18 [Ciprofloxacin ER 500 mg Tablet] Clotrimazole [Clotrimazole AF] 28 gm TP 08/19/18 Magnesium Citrate 296 ml PO 08/19/18 Polyvinyl Alcohol [Artificial 15 ml OP 08/19/18 Tears] Propranolol HCl 10 mg PO DAILY 08/19/18 08/19/18 Psyllium Husk/Aspartame [Metamucil 283 gm PO 08/19/18 Sugar-Free Powder] Trazodone HCl 50 mg PO DAILY 08/19/18 08/19/18 Triamcinolone 0.5% Cream [Kenalog 0 gm TOP BID 08/19/18 08/19/18 0.5% Cream] Witch Karyn [Preparation H] 1 each TP 08/19/18 Bisacodyl Supp [Dulcolax Supp] 10 mg IN DAILY PRN #5 supp 02/17/23 Docusate Sodium 100Mg Capsule 100 mg PO DAILY #20 cap 02/17/23 [Colace 100Mg Capsule] - Allergies Allergies/Adverse Reactions: Allergies Allergy/AdvReac Type Severity Reaction Status Date / Time No Known Drug Allergies Allergy Verified 08/21/17 14:54 - Social History Does the pt smoke?: No Smoking Status: Never smoker Does the pt drink ETOH?: Yes Does the pt have substance abuse?: No - Immunizations Immunizations are current?: Yes - POLST Patient has POLST: No PD ED PE NORMAL - Vitals Vital signs reviewed: Yes - General General: Alert and oriented X 3, No acute distress, Well developed/nourished - Neck Neck: Supple, no meningeal sign, No adenopathy - Cardiac Cardiac: RRR, No murmur - Respiratory Respiratory: Clear bilaterally - Abdomen Abdomen: Normal bowel sounds, Soft, Non distended, No organomegaly, Other (left lower to mid abd with some tenderness but no guarding, percussion nor rebound tenderness. No rash nor sores. ) - Rectal Rectal: Deferred - Back Back: No CVA TTP - Derm Derm: Normal color, Warm and dry, No rash - Extremities Extremities: No edema, No calf tenderness / cord Results - Vitals Vitals: Vital Signs - 24 hr 02/17/23 02/17/23 02/17/23 13:46 15:48 17:00 Temperature 36.7 C Heart Rate 62 61 67 Respiratory 15 18 16 Rate Blood Pressure 110/72 120/84 H 145/87 H O2 Saturation 100 100 100 Oxygen O2 Source Room air - Labs Labs: Laboratory Tests 02/17/23 02/17/23 02/17/23 14:00 14:00 15:28 WBC 4.7 L RBC 3.83 L Hgb 12.0 L Hct 36.8 L MCV 96.1 H MCH 31.3 H MCHC 32.6 RDW 13.4 Plt Count 153 MPV 10.3 Neut # (Auto) 3.0 Lymph # (Auto) 1.2 L Webb # (Auto) 0.3 Eos # (Auto) 0.1 Baso # (Auto) 0.1 Absolute Nucleated RBC 0.00 Nucleated RBC % 0.0 Sodium 138 Potassium 3.9 Chloride 104 Carbon Dioxide 32 Anion Gap 2.0 L BUN 18 Creatinine 1.0 Estimated GFR (MDRD) 73 L Glucose 122 H Calcium 9.0 Total Bilirubin 0.5 AST 26 ALT 29 Alkaline Phosphatase 56 Total Protein 6.3 L Albumin 3.7 Globulin 2.6 Albumin/Globulin Ratio 1.4 Lipase 27 Urine Color YELLOW Urine Clarity CLEAR Urine pH 5.5 Ur Specific [place] 1.020 Urine Protein NEGATIVE Urine Glucose (UA) NEGATIVE Urine Ketones NEGATIVE Urine Occult Blood NEGATIVE Urine Nitrite NEGATIVE Urine Bilirubin NEGATIVE Urine Urobilinogen 0.2 (NORMAL) Ur Leukocyte Esterase NEGATIVE Ur Microscopic Review NOT INDICATED Urine Culture Comments NOT INDICATED - Rads (name of study) abd/pelvic CT Relevant Findings:: Prelim report reviewed (no acute process seen. Copious stool in colon. ), EMP independent interpretation of test PD Medical Decision Making - ED course Complexity details: considered differential (left abd pain. Consider UTI, stone, diverticulitis, ischemic bowel (though not severely painful), other causes. Can get labs and CT. ), d/w patient Reviewed Lab Results: CT abd did not show acute abnormalitiy. there is generaous amount of stool in colon (not looking rectal impacted per se). This might be cause of the pain. He takes Mirilax daily currently. Can have him do it frequently tonight/tomorrow, and add Docusate. Perhaps dulcolax suppos but did not do that here as he needs to get ride/get back to [place] and did not want him to be having mess enroute/etc. Otherwise wbc is normal. LFT and lipase normal. Renal function at baseline. UA without infection. Departure - Departure Disposition: 01 Home, Self Care Clinical Impression: Left sided abdominal pain Constipated Qualifiers: Constipation type: unspecified constipation type Qualified Code(s): K59.00 - Constipation, unspecified Condition: Stable Record reviewed to determine appropriate education?: Yes Instructions: ED Constipation Prescriptions: Docusate Sodium 100Mg Capsule [Colace 100Mg Capsule] 100 mg PO DAILY #20 cap Bisacodyl Supp [Dulcolax Supp] 10 mg IN DAILY PRN #5 supp PRN Reason: Constipation Comments: Your pain seems likely caused by a large stool load within the colon particularly on the left side. There were no other causes of the pain identified by CT scan. Your blood tests and urine tests are normal as well. At this point I would suggest adding docusate stool softener once or twice daily to your regular medications for the next week or 2. You could also use a Dulcolax suppository daily to help with any stool buildup in the rectal area. Otherwise you state you do have MiraLAX at home and take that daily. I would suggest an extra dose this evening before bedtime and then tomorrow your usual morning dose followed by repeat dosing every 1-2 hours for the morning and afternoon until you are having soft regular stool. Tylenol every 4-6 hours as needed for pain or cramps. Continue your other usual medicines. Recheck if not improved well over the next day or 2 and return if worse. Forms: PCP List Discharge Date/Time: 02/17/23 18:21
[2023-02-17 14:08] LABS: BASOPHILS # (AUTO) 0.1 10^3/uL (0.0-0.1); BASOPHILS % (AUTO) 1.1 %; EOSINOPHILS # (AUTO) 0.1 10^3/uL (0.0-0.7); EOSINOPHILS % (AUTO) 1.1 %; HCT - HEMATOCRIT 36.8 % (42.0-52.0); LYMPHOCYTES # (AUTO) 1.2 10^3/uL (1.5-3.5); LYMPHOCYTES % (AUTO) 26.3 %; MEAN CORPUSCULAR HEMOGLOBIN 31.3 pg (27.0-31.0); MEAN CORPUSCULAR HGB CONC 32.6 g/dL (32.0-36.0); MEAN CORPUSCULAR VOLUME 96.1 fL (80.0-94.0); MEAN PLATELET VOLUME 10.3 fL (7.4-11.4); MONOCYTES # (AUTO) 0.3 10^3/uL (0.0-1.0); MONOCYTES % (AUTO) 7.3 %; PLT - PLATELET COUNT 153 10^3/uL (130-450); RED BLOOD COUNT 3.83 10^6/uL (4.70-6.10); RED CELL DISTRIBUTION WIDTH 13.4 % (12.0-15.0); WHITE BLOOD COUNT 4.7 x10^3/uL (4.8-10.8)
[2023-02-17] MEDS ORDERED: KETOROLAC 15 MG/ML VIAL IVP STA (14:23)
[2023-02-17 14:28] LABS: ALBUMIN 3.7 g/dL (3.2-5.5); ALBUMIN/GLOBULIN RATIO 1.4 (1.0-2.2); BILIRUBIN,TOTAL 0.5 mg/dL (0.2-1.0); POTASSIUM 3.9 mmol/L (3.5-4.5); TOTAL PROTEIN 6.3 g/dL (6.4-8.9)
[2023-02-17] MEDS ORDERED: iohexoL-300 100 ML VIAL ONE (14:37)
[2023-02-17] MEDS ORDERED: iohexoL-300 100 ML VIAL IVP ONE (15:21)
--- NOTE | 2023-02-17 16:23 | CT Report ---
PROCEDURE: CT abdomen pelvis with contrast INDICATIONS: LLQ pain since yesterday CONTRAST: 100ml omni 300 TECHNIQUE: After the administration of contrast, 5 mm thick sections acquired from the diaphragms to the symphys is. 5 mm thick coronal and sagittal reformats were acquired. For radiation dose reduction, the foll owing was used: automated exposure control, adjustment of mA and/or kV according to patient size. COMPARISON: July 19, 2014 FINDINGS: Image quality: Excellent. Lung bases and heart: Unremarkable. Liver: Hepatic fatty infiltration Gallbladder and biliary tree: Cholecystectomy Spleen: No splenomegaly. Pancreas: No pancreatic ductal dilation. Adrenals: No adrenal nodule. Kidneys and ureters: No hydronephrosis. No renal cystic lesion which requires follow up. No solid mas s. Bowel and peritoneum: Moderate fecal debris throughout the colon Lymph nodes: No central or retroperitoneal adenopathy. Vessels: No infrarenal aortic aneurysm. PELVIS Reproductive organs: Unremarkable. Bladder: No abnormal wall thickening, accounting for underdistension. Pelvic lymph nodes: No pelvic adenopathy by size criteria. Bones: No aggressive osseous abnormality. Other: No significant ventral or inguinal hernia. IMPRESSION: Moderate fecal debris throughout the colon. No obstruction Reviewed by: Raf Mas MD on 02/17/2023 3:22 PM SAEED Approved by: Raf Mas MD on 02/17/2023 3:22 PM AKSIVAN Station ID: [id number]
[2023-02-17 16:32] LABS: BILIRUBIN,URINE NEGATIVE (NEGATIVE); GLUCOSE, URINE (UA) NEGATIVE (NEGATIVE); KETONES,URINE (UA) NEGATIVE (NEGATIVE); LEUKOCYTE ESTERASE, URINE NEGATIVE (NEGATIVE); NITRITE,URINE NEGATIVE (NEGATIVE); OCCULT BLOOD,URINE NEGATIVE (NEGATIVE); PH,URINE 5.5 PH (5.0-7.5); PROTEIN,URINE NEGATIVE (NEGATIVE); UROBILINOGEN,URINE 0.2 (NORMAL) E.U./dL (NORMAL)
[2023-02-17 16:35] LABS: CLARITY,URINE CLEAR (CLEAR)
[2023-02-17] MEDS ORDERED: DOCUSATE SODIUM 100 MG CAPSULE PO STA (17:02)
[2023-02-17] MEDS ORDERED: LACTULOSE 10 GM /15 ML UDC PO STA (17:02)
[2023-02-17 18:24] VITALS: BP 145/87
== END 2023-02-17 18:21 | disposition home or self-care (01) ==
LOC: ED 13:40
DX: K59.00 Constipation, unspecified (principal); R10.32 Left lower quadrant pain; I12.0 Hypertensive chronic kidney disease with stage 5 chronic kidney disease or end stage renal disease; Z79.899 Other long term (current) drug therapy
CPT/HCPCS: 36415; 74177; 80053; 81003; 83690; 85025; 96374; 99284; A9270; Q9967; 81001; 87086

== ENCOUNTER 2023-10-15 12:00 | Outpatient (CLI) | payer MEDICARE, OTHER | END 2023-10-15 23:59 | disposition critical access hospital (66) | LOC: EMS 12:00 | DX: R10.31 Right lower quadrant pain (principal); R53.1 Weakness | CPT/HCPCS: A0425; A0429 ==

== ENCOUNTER 2023-10-15 12:23 | Emergency (ER) | payer MEDICARE, OTHER ==
[2023-10-15 13:06] LABS: BASOPHILS % (AUTO) 0.8 %; EOSINOPHILS # (AUTO) 0.1 10^3/uL (0.0-0.7); EOSINOPHILS % (AUTO) 1.4 %; HCT - HEMATOCRIT 38.2 % (42.0-52.0); HGB - HEMOGLOBIN 12.2 g/dL (14.0-18.0); LYMPHOCYTES # (AUTO) 1.4 10^3/uL (1.5-3.5); LYMPHOCYTES % (AUTO) 27.7 %; MEAN CORPUSCULAR HEMOGLOBIN 30.9 pg (27.0-31.0); MEAN CORPUSCULAR HGB CONC 31.9 g/dL (32.0-36.0); MEAN CORPUSCULAR VOLUME 96.7 fL (80.0-94.0); MEAN PLATELET VOLUME 10.2 fL (7.4-11.4); MONOCYTES # (AUTO) 0.3 10^3/uL (0.0-1.0); MONOCYTES % (AUTO) 6.6 %; NEUTROPHILS # (AUTO) 3.3 10^3/uL (1.5-6.6); NEUTROPHILS % (AUTO) 63.3 %; PLT - PLATELET COUNT 179 10^3/uL (130-450); RED BLOOD COUNT 3.95 10^6/uL (4.70-6.10); RED CELL DISTRIBUTION WIDTH 13.5 % (12.0-15.0); WHITE BLOOD COUNT 5.1 x10^3/uL (4.8-10.8)
[2023-10-15 13:20] LABS: ALBUMIN 3.6 g/dL (3.2-5.5); ALBUMIN/GLOBULIN RATIO 1.2 (1.0-2.2); BILIRUBIN,TOTAL 0.4 mg/dL (0.2-1.0); CALCIUM 9.4 mg/dL (8.5-10.3); POTASSIUM 4.6 mmol/L (3.5-4.5); TOTAL PROTEIN 6.6 g/dL (6.4-8.9)
--- NOTE | 2023-10-15 13:31 | ED Physician Documentation ---
PD HPI ABD PAIN - Stated complaint Stated Complaint: ABD PX - Chief complaint Chief Complaint: Abd Pain - History obtained from History obtained from: Patient - History of Present Illness Timing - onset: How many days ago (2-3) Timing - duration: Days (2-3) Timing - details: Gradual onset, Still present Quality: Cramping, Aching, Pain Location: Periumbilical, LLQ Radiation: Lower back. No: Left flank Improved by: Laying still. No: Eating Worsened by: Moving, Palpation. No: Eating, Breathing Associated symptoms: Nausea, Diarrhea (small amounts loose stool the past few days, without noted mucous nor blood.), Constipation (few days ago said he had had large firm BMs, but now the past 2-3 days with small amounts of loose stool.), Loss of appetite. No: Fever, Vomiting, Near syncope / syncope Similar symptoms before: Has not had sx before Recently seen: Clinic (went to [facility] today and referred to ER for the pain. Pt did not have easy transportation to ER, I believe.) Review of Systems Constitutional: denies: Fever, Chills Nose: denies: Rhinorrhea / runny nose, Congestion Throat: denies: Sore throat Respiratory: denies: Cough GI: reports: Abdominal Pain, Nausea. denies: Abdominal Swelling, Bloody / black stool : denies: Dysuria, Frequency PD PAST MEDICAL HISTORY - Past Medical History Past Medical History: Yes Cardiovascular: Hypertension Respiratory: None Neuro: Dementia Endocrine/Autoimmune: None GI: GERD, Other : None HEENT: Other Psych: Anxiety Musculoskeletal: None Derm: None - Past Surgical History Past Surgical History: Yes General: Appendectomy, Other - Present Medications Home Medications: Ambulatory Orders Medication Instructions Recorded Confirmed Simvastatin [Zocor] 20 mg PO DAILY 08/26/13 10/15/23 Omeprazole [Prilosec] 20 mg PO BID 08/18/15 10/15/23 Docusate Sodium 100 mg PO BID PRN 07/16/17 10/15/23 Escitalopram Oxalate [Lexapro] 20 mg PO DAILY 07/16/17 10/15/23 Fluticasone [Flonase] 1 spray GEORGES BID 07/16/17 10/15/23 Loratadine 1 cap PO DAILY 07/16/17 10/15/23 Multivit-Min/Iron Fum/Folic AC 1 tab PO DAILY 07/16/17 10/15/23 [Zonqg-Ncprynp-Vaavxmen Tablet] Tamsulosin [Flomax] 1 cap PO DAILY 07/16/17 10/15/23 Buspirone HCl 30 mg PO BID 08/16/18 10/15/23 clonazePAM [Clonazepam] 2 mg PO TID 08/16/18 10/15/23 Acetaminophen 650 mg PO BID PRN 08/19/18 10/15/23 Ascorbic Acid [Vitamin C] 1,000 mg PO DAILY 08/19/18 10/15/23 Azelastine HCl 205.5 mcg NS BID PRN 08/19/18 10/15/23 Uotjsvveq-Dxozjnr-Sobsjtjs-Pet 9 gm TP QID PRN 08/19/18 10/15/23 [Anbesol Cold Sore Ointment] Clotrimazole [Clotrimazole AF] 28 gm TP DAILY 08/19/18 10/15/23 Magnesium Citrate 296 ml PO DAILY 08/19/18 10/15/23 Polyvinyl Alcohol [Artificial 15 ml OP DAILY 08/19/18 10/15/23 Tears] Psyllium Husk/Aspartame [Metamucil 283 gm PO DAILY 08/19/18 10/15/23 Sugar-Free Powder] Trazodone HCl 50 mg PO DAILY 08/19/18 10/15/23 Amox/Clav 875/125 [Augmentin] 1 each PO BID #10 tablet 10/15/23 Clotrimazole/Betamethasone Crm 1 gm TOP BID 7 Days #15 gm 10/15/23 [Lotrisone Cream] Docusate Sodium 100Mg Capsule 100 mg PO DAILY #20 cap 10/15/23 [Colace 100Mg Capsule] Meloxicam [Mobic] 7.5 mg PO BID 7 Days #14 tablet 10/15/23 - Allergies Allergies/Adverse Reactions: Allergies Allergy/AdvReac Type Severity Reaction Status Date / Time No Known Drug Allergies Allergy Verified 10/15/23 12:34 - Social History Does the pt smoke?: No Smoking Status: Never smoker Does the pt drink ETOH?: Yes Does the pt have substance abuse?: No - Immunizations Immunizations are current?: Yes - POLST Patient has POLST: No PD ED PE NORMAL - Vitals Vital signs reviewed: Yes - General General: Alert and oriented X 3, Well developed/nourished, Other (appers in some discomfort.) - Neck Neck: Supple, no meningeal sign, No adenopathy - Cardiac Cardiac: RRR, No murmur - Respiratory Respiratory: No respiratory distress, Clear bilaterally - Abdomen Abdomen: Normal bowel sounds, Soft, Non distended, No organomegaly, Other (tender left lower abd with local guarding and some percussion tendrness. No rebound. Rest of abd not tender. Not tender right upper nor lower. ) - Derm Derm: Normal color, Warm and dry, No rash - Extremities Extremities: Normal ROM s pain, No edema, No calf tenderness / cord - Neuro Neuro: No motor deficit, No sensory deficit, Normal speech. No: Alert and oriented X 3 (person and place. Quite alert and conversant. ) Results - Vitals Vitals: Oxygen O2 Source Room air - Labs Labs: Laboratory Tests 10/15/23 10/15/23 10/15/23 13:00 13:00 14:47 WBC 5.1 RBC 3.95 L Hgb 12.2 L Hct 38.2 L MCV 96.7 H MCH 30.9 MCHC 31.9 L RDW 13.5 Plt Count 179 MPV 10.2 Neut # (Auto) 3.3 Lymph # (Auto) 1.4 L Baker # (Auto) 0.3 Eos # (Auto) 0.1 Baso # (Auto) 0.0 Absolute Nucleated RBC 0.00 Nucleated RBC % 0.0 Sodium 138 Potassium 4.6 H Chloride 104 Carbon Dioxide 32 Anion Gap 2.0 L BUN 28 H Creatinine 1.0 Estimated GFR (MDRD) 73 L Glucose 98 Calcium 9.4 Total Bilirubin 0.4 AST 17 ALT 15 Alkaline Phosphatase 50 Total Protein 6.6 Albumin 3.6 Globulin 3.0 Albumin/Globulin Ratio 1.2 Lipase 26 Urine Color YELLOW Urine Clarity CLEAR Urine pH 6.5 Ur Specific [place] 1.020 Urine Protein NEGATIVE Urine Glucose (UA) NEGATIVE Urine Ketones NEGATIVE Urine Occult Blood NEGATIVE Urine Nitrite NEGATIVE Urine Bilirubin NEGATIVE Urine Urobilinogen 1 (NORMAL) Ur Leukocyte Esterase NEGATIVE Ur Microscopic Review NOT INDICATED Urine Culture Comments NOT INDICATED - Rads (name of study) abd/pelvic CT Relevant Findings:: Prelim report reviewed (distal colonic fat stranding and wall thickening with lumen fluid c/w colitis. Proximal to that is moderate stool burden. ), EMP independent interpretation of test PD Medical Decision Making - ED course Complexity details: reviewed results, considered differential (lower abd pain progoressive for few days, with normal UA and CBC. Discussed CT with pt and mutual agreeemnt, and this showed colitis distal colon to account for pain and some soft stools, but still modeate stool burden proximal. So will treat acute colitis but also add stool softener. ), d/w patient Departure - Departure Disposition: 01 Home, Self Care Clinical Impression: Tinea cruris, Lower abdominal pain, Colitis, Constipation Condition: Stable Record reviewed to determine appropriate education?: Yes Prescriptions: Amox/Clav 875/125 [Augmentin] 1 each PO BID #10 tablet Docusate Sodium 100Mg Capsule [Colace 100Mg Capsule] 100 mg PO DAILY #20 cap Clotrimazole/Betamethasone Crm [Lotrisone Cream] 1 gm TOP BID 7 Days #15 gm Meloxicam [Mobic] 7.5 mg PO BID 7 Days #14 tablet Comments: Your CT scan is showing some inflammation of the colon in the descending and sigmoid area (acute colitis). This is some inflammation to it and can be inflammatory though more likely is some infection into the wall. Will treat this with an antibiotic called Augmentin twice daily for the next 5 days. In addition would work on the inflammation component with an anti- inflammatory. I wrote for some meloxicam twice daily for a week. The weepiness and apparent diarrhea and loose stool is coming from the inflammation in that area at the distal colon. However there is still a moderate amount of fecal load above that in the proximal intestine. As such I would have you continue with your MiraLAX daily or perhaps even twice daily for the next few days and add docusate stool softener to it as well. Stay well-hydrated. Tylenol every 4-6 hours if needed for pains. Recheck if not improving well in the next few days. I sent your prescription to the [facility] pharmacy in [place]. Follow-up with your primary care. Oh in addition the irritated red area at the upper or lower sacral area looks like a small yeast infection of the skin. I would use some Lotrisone cream on that and I added that to the prescriptions. Use that twice daily for the next week or so and it should clear. Forms: PCP List Discharge Date/Time: 10/15/23 20:27
[2023-10-15] MEDS ORDERED: iohexoL-300 100 ML VIAL ONE (14:24)
[2023-10-15] MEDS: SODIUM CHLORIDE 0.9% 1,000 ML IV STA (14:26)
[2023-10-15] MEDS: KETOROLAC 15 MG/ML VIAL IVP STA (14:26)
[2023-10-15] MEDS: clonazePAM 0.5 MG TABLET PO STA (14:45)
[2023-10-15 14:58] LABS: BILIRUBIN,URINE NEGATIVE (NEGATIVE); GLUCOSE, URINE (UA) NEGATIVE (NEGATIVE); KETONES,URINE (UA) NEGATIVE (NEGATIVE); LEUKOCYTE ESTERASE, URINE NEGATIVE (NEGATIVE); NITRITE,URINE NEGATIVE (NEGATIVE); OCCULT BLOOD,URINE NEGATIVE (NEGATIVE); PH,URINE 6.5 PH (5.0-7.5); PROTEIN,URINE NEGATIVE (NEGATIVE); UROBILINOGEN,URINE 1 (NORMAL) E.U./dL (NORMAL)
[2023-10-15 15:00] LABS: CLARITY,URINE CLEAR (CLEAR)
--- NOTE | 2023-10-15 16:06 | CT Report ---
PROCEDURE: Abdomen/Pelvis W INDICATIONS: general/left abd pain for days CONTRAST: Omni 300 100ml TECHNIQUE: After the administration of intravenous contrast, a CT scan of the abdomen and pelvis was performed. Images were recorded and evaluated at appropriate window settings. Reformats: coronal and sagittal. F or radiation dose reduction, the following was used: automated exposure control, adjustment of mA and /or kV according to patient size. COMPARISON: 02/17/2023 FINDINGS: Image quality: Diagnostic Lower chest: Unremarkable lung bases. Mild nonspecific distal esophageal wall thickening, possibly es ophagitis, consider endoscopy correlation if needed. Liver: Small hypervascular foci at the periphery in both the right lobe and the left lobe. Possible s egment 7 hemangioma. Gallbladder and biliary system: Absent gallbladder. No biliary ductal dilation Pancreas: No ductal dilation Spleen: Nonenlarged Adrenals: No discrete nodules Kidneys: No solid mass or hydronephrosis. Left renal simple cyst is seen. Vessels and lymph nodes: The portal system is not well assessed due to probable mixing artifact. No a bdominal aortic aneurysm. No pathologic lymph nodes by size criteria. Bowel and peritoneum: Mild fat stranding around the distal colon. Partially liquid colonic contents. No small bowel obstruction. No drainable abscess. Body wall: Unremarkable Pelvis: Bladder is unremarkable. The prostate is heterogeneous and not well evaluated on this study. There is a small amount of nonspecific pelvic free fluid. Bones: Degenerative changes. Small sclerotic lesions again seen, indeterminate, possibly bone islands . IMPRESSION: Moderate fecal loading. Partially liquid colonic contents. Mild pelvic edema and distal pericolonic f at stranding. Findings are suggestive of colitis. Consider correlation with age-appropriate colonosco py results. Small hypervascular foci at the periphery of the liver. Possible segment 7 hemangioma. These findings may represent perfusional anomalies and other hemangiomas. Follow-up CT or MR liver protocol could f urther evaluate if clinically indicated. Other findings as above. Reviewed by: Keshawn Tang MD on 10/15/2023 4:05 PM PDT Approved by: Keshawn Tang MD on 10/15/2023 4:05 PM PDT Station ID: [id number]
[2023-10-15] MEDS: iohexoL-300 100 ML VIAL IVP ONE (16:45)
[2023-10-15] MEDS: AMOX/CLAV 875 MG/125 MG TABLET PO STA (18:11)
[2023-10-15] MEDS: DOCUSATE SODIUM 100 MG CAPSULE PO STA (18:11)
[2023-10-15 18:46] VITALS: BP 142/79; O2SAT 97
== END 2023-10-15 20:27 | disposition home or self-care (01) ==
LOC: EDUNIT# → ED 12:23
DX: K52.9 Noninfective gastroenteritis and colitis, unspecified (principal); K59.00 Constipation, unspecified; B35.6 Tinea cruris
CPT/HCPCS: 36415; 74177; 80053; 81003; 83690; 85025; 96361; 96374; 99284; A9270; Q9967; 81001; 87086

== ENCOUNTER 2023-10-15 20:26 | Outpatient (CLI) | payer MEDICARE, OTHER | END 2023-10-15 23:59 | disposition home or self-care (01) | LOC: EMS 20:26 | PROVIDERS: ATTEND Emergency Medicine | DX: K52.9 Noninfective gastroenteritis and colitis, unspecified (principal); F03.90 Unspecified dementia, unspecified severity, without behavioral disturbance, psychotic disturbance, mood disturbance, and anxiety | CPT/HCPCS: A0425; A0428 ==

== ENCOUNTER 2024-01-05 11:59 | Outpatient (CLI) | payer MEDICARE, OTHER | END 2024-01-05 23:59 | disposition critical access hospital (66) | LOC: EMS 11:59 | DX: R10.12 Left upper quadrant pain (principal); R10.32 Left lower quadrant pain; R10.814 Left lower quadrant abdominal tenderness; R10.812 Left upper quadrant abdominal tenderness; M54.9 Dorsalgia, unspecified; R30.9 Painful micturition, unspecified | CPT/HCPCS: A0425; A0429 ==

== ENCOUNTER 2024-01-05 12:23 | Emergency (ER) | payer MEDICARE, OTHER ==
[2024-01-05 12:30] VITALS: O2SAT 100
[2024-01-05 12:53] LABS: BASOPHILS % (AUTO) 0.4 %; EOSINOPHILS # (AUTO) 0.1 10^3/uL (0.0-0.7); EOSINOPHILS % (AUTO) 1.5 %; HCT - HEMATOCRIT 37.8 % (42.0-52.0); LYMPHOCYTES # (AUTO) 1.1 10^3/uL (1.5-3.5); LYMPHOCYTES % (AUTO) 14.5 %; MEAN CORPUSCULAR HEMOGLOBIN 30.6 pg (27.0-31.0); MEAN CORPUSCULAR HGB CONC 31.7 g/dL (32.0-36.0); MEAN CORPUSCULAR VOLUME 96.4 fL (80.0-94.0); MEAN PLATELET VOLUME 10.2 fL (7.4-11.4); MONOCYTES # (AUTO) 0.4 10^3/uL (0.0-1.0); MONOCYTES % (AUTO) 5.7 %; NEUTROPHILS # (AUTO) 5.7 10^3/uL (1.5-6.6); NEUTROPHILS % (AUTO) 77.6 %; PLT - PLATELET COUNT 174 10^3/uL (130-450); RED BLOOD COUNT 3.92 10^6/uL (4.70-6.10); RED CELL DISTRIBUTION WIDTH 13.4 % (12.0-15.0); WHITE BLOOD COUNT 7.4 x10^3/uL (4.8-10.8)
[2024-01-05] MEDS: SUCRALFATE 1 GM/10 ML UDC PO STA (13:00)
[2024-01-05] MEDS: FAMOTIDINE 20 MG TABLET PO STA (13:01)
[2024-01-05] MEDS: LIDOCAINE VISCOUS 2% 15 ML UDC MM STA (13:01)
[2024-01-05] MEDS: MAG HYDROX/AL HYDROX/SIMETH 30 ML UDC PO STA (13:01)
[2024-01-05 13:02] LABS: ALBUMIN 3.8 g/dL (3.2-5.5); ALBUMIN/GLOBULIN RATIO 1.3 (1.0-2.2); BILIRUBIN,TOTAL 0.4 mg/dL (0.2-1.0); CALCIUM 9.2 mg/dL (8.5-10.3); CREATININE 0.9 mg/dL (0.6-1.3); POTASSIUM 4.1 mmol/L (3.5-4.5); TOTAL PROTEIN 6.7 g/dL (6.4-8.9)
[2024-01-05 13:23] LABS: BILIRUBIN,URINE NEGATIVE (NEGATIVE); GLUCOSE, URINE (UA) NEGATIVE (NEGATIVE); KETONES,URINE (UA) NEGATIVE (NEGATIVE); LEUKOCYTE ESTERASE, URINE NEGATIVE (NEGATIVE); NITRITE,URINE NEGATIVE (NEGATIVE); OCCULT BLOOD,URINE NEGATIVE (NEGATIVE); PH,URINE 5.5 PH (5.0-7.5); PROTEIN,URINE NEGATIVE (NEGATIVE); UROBILINOGEN,URINE 0.2 (NORMAL) E.U./dL (NORMAL)
[2024-01-05 13:26] LABS: CLARITY,URINE CLEAR (CLEAR)
--- NOTE | 2024-01-05 13:33 | ED Physician Documentation ---
PD HPI ABD PAIN - Stated complaint Stated Complaint: ABD PX - Chief complaint Chief Complaint: Abd Pain - History obtained from History obtained from: Patient - History of Present Illness Timing - onset: Yesterday Timing - duration: Days (2) Timing - details: Gradual onset Quality: Dull, Pain Location: Epigastric Associated symptoms: No: Fever, Nausea, Vomiting, Hematemesis, Diarrhea, Constipation, Melena, Hematochezia, Dysuria, Hematuria - Additional information Additional information: 73-year-old male states that he has had epigastric pain with eating for the past 2 days. Described as dull pain. He states it did not hurt at breakfast today but did have some slight pain after eating chicken this afternoon. No right upper quadrant pain. Feels similar to past episodes of gastritis. No vomiting. No diarrhea. No fevers. No chills. Nonradiating. No urinary symptoms. No recent travel. No recent antibiotics. Review of Systems Constitutional: denies: Fever, Chills Cardiac: denies: Chest pain / pressure, Palpitations, Calf pain Respiratory: denies: Dyspnea, Cough, Wheezing GI: denies: Vomiting Skin: denies: Rash Musculoskeletal: denies: Neck pain, Back pain Neurologic: denies: Headache PD PAST MEDICAL HISTORY - Past Medical History Cardiovascular: Hypertension Respiratory: None Neuro: Dementia Endocrine/Autoimmune: None GI: GERD, Other : None HEENT: Other Psych: Depression, Anxiety Musculoskeletal: None Derm: None - Past Surgical History Past Surgical History: Yes General: Appendectomy, Other - Present Medications Home Medications: Ambulatory Orders Medication Instructions Recorded Confirmed Simvastatin [Zocor] 20 mg PO HS 08/26/13 01/05/24 Omeprazole [Prilosec] 20 mg PO BID 08/18/15 01/05/24 Escitalopram Oxalate [Lexapro] 20 mg PO DAILY PM 07/16/17 01/05/24 Fluticasone [Flonase] 1 spray GEOR[place]ES BID 07/16/17 01/05/24 Multivit-Min/Iron Fum/Folic AC 1 tab PO DAILY 07/16/17 01/05/24 [Tzeav-Visqbmz-Mafhxmug Tablet] Tamsulosin [Flomax] 0.4 mg PO DAILY 07/16/17 01/05/24 clonazePAM [Clonazepam] 2 mg PO TID 08/16/18 01/05/24 Acetaminophen 650 mg PO BID PRN 08/19/18 10/15/23 Ascorbic Acid [Vitamin C] 1,000 mg PO DAILY 08/19/18 01/05/24 Azelastine HCl 1 spray NS BID PRN 08/19/18 01/05/24 Yzrokphtw-Fyrpwdb-Fxkxrasc-Pet 1 drops TP QID PRN 08/19/18 01/05/24 [Anbesol Cold Sore Ointment] Clotrimazole [Clotrimazole AF] 1 applic TP DAILY 08/19/18 01/05/24 Magnesium Citrate 296 ml PO DAILY PRN 08/19/18 01/05/24 Polyvinyl Alcohol [Artificial 15 ml OP DAILY 08/19/18 01/05/24 Tears] Psyllium Husk/Aspartame [Metamucil 283 gm PO DAILY PRN 08/19/18 01/05/24 Sugar-Free Powder] Trazodone HCl 100 mg PO HS 08/19/18 01/05/24 Docusate Sodium 100Mg Capsule 100 mg PO DAILY #20 cap 10/15/23 01/05/24 [Colace 100Mg Capsule] Clotrimazole/Betamethasone Crm 1 applic TOP BID PRN 01/05/24 01/05/24 [Lotrisone Cream] Finasteride [Proscar] 5 mg PO DAILY 01/05/24 01/05/24 Gabapentin [Neurontin] 100 mg PO HS 01/05/24 01/05/24 Meloxicam [Mobic] 7.5 mg PO BID PRN 01/05/24 01/05/24 Montelukast [Singulair] 10 mg PO QPM 01/05/24 01/05/24 Prevagen 10 mg ORAL DAILY 01/05/24 01/05/24 polyethylene glycoL 3350 [Miralax] 17 gm PO DAILY 01/05/24 01/05/24 - Allergies Allergies/Adverse Reactions: Allergies Allergy/AdvReac Type Severity Reaction Status Date / Time No Known Drug Allergies Allergy Verified 01/05/24 12:29 - Social History Does the pt smoke?: No Smoking Status: Never smoker Does the pt drink ETOH?: Yes Does the pt have substance abuse?: No - Immunizations Immunizations are current?: Yes - POLST Patient has POLST: No PD ED PE NORMAL - Vitals Vital signs reviewed: Yes - General General: Alert and oriented X 3, No acute distress - HEENT HEENT: PERRL, Moist mucous membranes - Neck Neck: Supple, no meningeal sign - Cardiac Cardiac: RRR, Strong equal pulses - Respiratory Respiratory: No respiratory distress, Clear bilaterally - Abdomen Abdomen: Normal bowel sounds, Soft, Non tender, Non distended - Derm Derm: Warm and dry - Neuro Neuro: Alert and oriented X 3 - Psych Psych: Normal mood, Normal affect Results - Vitals Vitals: Vital Signs - 24 hr 01/05/24 01/05/24 12:26 13:54 Temperature 36.6 C Heart Rate 62 50 L Respiratory 16 16 Rate Blood Pressure 124/77 136/86 H O2 Saturation 100 100 Oxygen O2 Source Room air - Labs Labs: Laboratory Tests 01/05/24 01/05/24 01/05/24 12:43 12:43 13:18 WBC 7.4 RBC 3.92 L Hgb 12.0 L Hct 37.8 L MCV 96.4 H MCH 30.6 MCHC 31.7 L RDW 13.4 Plt Count 174 MPV 10.2 Neut # (Auto) 5.7 Lymph # (Auto) 1.1 L [place] # (Auto) 0.4 Eos # (Auto) 0.1 Baso # (Auto) 0.0 Absolute Nucleated RBC 0.00 Nucleated RBC % 0.0 Sodium 138 Potassium 4.1 Chloride 102 Carbon Dioxide 32 Anion Gap 4.0 L BUN 23 H Creatinine 0.9 Estimated GFR (MDRD) 83 L Glucose 108 H Calcium 9.2 Total Bilirubin 0.4 AST 18 ALT 20 Alkaline Phosphatase 58 Total Protein 6.7 Albumin 3.8 Globulin 2.9 Albumin/Globulin Ratio 1.3 Lipase 27 Urine Color DARK YELLOW Urine Clarity CLEAR Urine pH 5.5 Ur Specific [place] >=1.030 H Urine Protein NEGATIVE Urine Glucose (UA) NEGATIVE Urine Ketones NEGATIVE Urine Occult Blood NEGATIVE Urine Nitrite NEGATIVE Urine Bilirubin NEGATIVE Urine Urobilinogen 0.2 (NORMAL) Ur Leukocyte Esterase NEGATIVE Ur Microscopic Review NOT INDICATED Urine Culture Comments NOT INDICATED PD Medical Decision Making - ED course Complexity details: reviewed results, re-evaluated patient, considered differential, d/w patient ED course: Patient was given a GI cocktail here. Symptoms fully resolved. No significant lab abnormalities. White blood cell count is normal. Tolerating p.o. without difficulty and without pain. No indication for CT scan at this time. Recommend he follow-up with his PCP for an endoscopy to confirm gastritis. He is on a PPI at home reportedly. We will continue this. Patient counseled regarding signs and symptoms for which I believe and urgent re-evaluation would be necessary. Patient with good understanding of and agreement to plan and is comfortable going home at this time This document was made in part using voice recognition software. While efforts are made to proofread this document, sound alike and grammatical errors may occur. Departure - Departure Disposition: Home, Self Care Clinical Impression: Abdominal pain Qualifiers: Abdominal location: epigastric Qualified Code(s): R10.13 - Epigastric pain Gastritis Qualifiers: Gastritis type: unspecified gastritis Chronicity: acute Gastritis bleeding: without bleeding Qualified Code(s): K29.00 - Acute gastritis without bleeding Condition: Good Instructions: ED PUD Vs Gastritis Follow-Up: ALFREDO PATEL PA [Primary Care Provider] - Comments: Please follow-up with your doctor for further care. Your laboratory testing does not show any significant abnormalities today. Your symptoms have resolved with a GI cocktail. Please return for worsening symptoms including vomiting, fevers or severe pain. Forms: PCP List
[2024-01-05 14:03] VITALS: BP 136/86
== END 2024-01-05 14:08 | disposition home or self-care (01) ==
LOC: ED 12:23
DX: K29.00 Acute gastritis without bleeding (principal)
CPT/HCPCS: 36415; 80053; 81003; 83690; 85025; 99283; A9270; 81001; 87086

== ENCOUNTER 2024-01-06 20:31 | Outpatient (CLI) | payer MEDICARE, OTHER | END 2024-01-06 23:59 | disposition critical access hospital (66) | LOC: EMS 20:31 | DX: K64.9 Unspecified hemorrhoids (principal) | CPT/HCPCS: A0425; A0429 ==

== ENCOUNTER 2024-01-06 20:47 | Emergency (ER) | payer MEDICARE, OTHER ==
--- NOTE | 2024-01-06 23:47 | ED Physician Documentation ---
History of Present Illness - Stated complaint Stated Complaint: GI - Chief complaint Chief Complaint: General - Additonal information Additional information: 73-year-old male presents with concern for a bleeding hemorrhoid. Reports history of hemorrhoids, uses witch ginger pads, Preparation H and is on stool softeners. Has been followed by his primary care doctor. Today noted some extra blood on the toilet paper. Denies any blood in his stool, or dark tarry stool. Denies any abdominal pain. Denies any fever, chills, chest pain, shortness of breath. Review of Systems Constitutional: denies: Fever Eyes: denies: Loss of vision Ears: denies: Loss of hearing Nose: denies: Rhinorrhea / runny nose Throat: denies: Dental pain / toothache Cardiac: denies: Chest pain / pressure Respiratory: denies: Dyspnea GI: denies: Abdominal Pain : denies: Dysuria PD PAST MEDICAL HISTORY - Past Medical History Cardiovascular: Hypertension Respiratory: None Neuro: Dementia Endocrine/Autoimmune: None GI: GERD, Other : None HEENT: Other Psych: Depression, Anxiety Musculoskeletal: None Derm: None - Past Surgical History Past Surgical History: Yes General: Appendectomy, Other - Present Medications Home Medications: Ambulatory Orders Medication Instructions Recorded Confirmed Simvastatin [Zocor] 20 mg PO HS 08/26/13 01/05/24 Omeprazole [Prilosec] 20 mg PO BID 08/18/15 01/05/24 Escitalopram Oxalate [Lexapro] 20 mg PO DAILY PM 07/16/17 01/05/24 Fluticasone [Flonase] 1 spray GE[place]ES BID 07/16/17 01/05/24 Multivit-Min/Iron Fum/Folic AC 1 tab PO DAILY 07/16/17 01/05/24 [Dmvro-Kotxmxo-Iczzewjq Tablet] Tamsulosin [Flomax] 0.4 mg PO DAILY 07/16/17 01/05/24 clonazePAM [Clonazepam] 2 mg PO TID 08/16/18 01/05/24 Acetaminophen 650 mg PO BID PRN 08/19/18 10/15/23 Ascorbic Acid [Vitamin C] 1,000 mg PO DAILY 08/19/18 01/05/24 Azelastine HCl 1 spray NS BID PRN 08/19/18 01/05/24 Cjsboqyza-Gqzgfnk-Smzhrykt-Pet 1 drops TP QID PRN 08/19/18 01/05/24 [Anbesol Cold Sore Ointment] Clotrimazole [Clotrimazole AF] 1 applic TP DAILY 08/19/18 01/05/24 Magnesium Citrate 296 ml PO DAILY PRN 08/19/18 01/05/24 Polyvinyl Alcohol [Artificial 15 ml OP DAILY 08/19/18 01/05/24 Tears] Psyllium Husk/Aspartame [Metamucil 283 gm PO DAILY PRN 08/19/18 01/05/24 Sugar-Free Powder] Trazodone HCl 100 mg PO HS 08/19/18 01/05/24 Docusate Sodium 100Mg Capsule 100 mg PO DAILY #20 cap 10/15/23 01/05/24 [Colace 100Mg Capsule] Clotrimazole/Betamethasone Crm 1 applic TOP BID PRN 01/05/24 01/05/24 [Lotrisone Cream] Finasteride [Proscar] 5 mg PO DAILY 01/05/24 01/05/24 Gabapentin [Neurontin] 100 mg PO HS 01/05/24 01/05/24 Meloxicam [Mobic] 7.5 mg PO BID PRN 01/05/24 01/05/24 Montelukast [Singulair] 10 mg PO QPM 01/05/24 01/05/24 Prevagen 10 mg ORAL DAILY 01/05/24 01/05/24 polyethylene glycoL 3350 [Miralax] 17 gm PO DAILY 01/05/24 01/05/24 - Allergies Allergies/Adverse Reactions: Allergies Allergy/AdvReac Type Severity Reaction Status Date / Time No Known Drug Allergies Allergy Verified 01/06/24 21:02 - Social History Does the pt smoke?: No Smoking Status: Never smoker Does the pt drink ETOH?: Yes Does the pt have substance abuse?: No - Immunizations Immunizations are current?: Yes - POLST Patient has POLST: No PD ED PE NORMAL - Vitals Vital signs reviewed: Yes - General General: Alert and oriented X 3, No acute distress, Well developed/nourished - HEENT HEENT: Atraumatic, PERRL, EOMI, Ears normal, Moist mucous membranes, Pharynx benign - Neck Neck: Supple, no meningeal sign, No bony TTP, No adenopathy, Thyroid normal, No JVD, No bruit, C-Spine cleared by NEXUS criteria - Cardiac Cardiac: RRR, No murmur, No gallop, Strong equal pulses - Respiratory Respiratory: No respiratory distress, Clear bilaterally - Abdomen Abdomen: Normal bowel sounds, Soft, Non tender, No organomegaly - Male Male : 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 No fissures or internal hemorrhoids. Light brown stool in rectal vault.) Results - Vitals Vitals: Vital Signs - 24 hr 01/06/24 01/06/24 20:59 22:04 Temperature 36.7 C Heart Rate 62 51 L Respiratory 16 16 Rate Blood Pressure 132/76 H 125/71 O2 Saturation 96 99 Oxygen O2 Source Room air PD Medical Decision Making - ED course Complexity details: d/w patient ED course: 73-year-old male presents with concern for a bleeding hemorrhoid. Noted some bleeding on his toilet paper earlier this evening. Currently uses witch ginger pads, Preparation H and is on stool softeners. Afebrile, medically stable. Benign abdominal exam. He denied any chest or abdominal pain. His rectal exam demonstrated some nonthrombosed external hemorrhoids. Rectal exalt was negative for internal hemorrhoids, fissures and there is light brown stool in the rectal vault neither melanotic nor any signs of hematochezia. At this time I will discharge and have the patient continue to take all of his current medications and follow-up with his primary care doctor. I do not see any indication for further testing at this time however he will be given explicit return precautions for new or worsening symptoms. Departure - Departure Disposition: 01 Home, Self Care Clinical Impression: Hemorrhoid Qualifiers: Hemorrhoid type: unspecified Qualified Code(s): K64.9 - Unspecified hemorrhoids Instructions: ED Hemorrhoids Comments: Thank you for allowing us to care for you today at [facility]. As we discussed your physical exam shows nonthrombosed, noninflamed external he morrhoids. It is not uncommon to see a scant amount of bleeding in association with hemorrhoids. Please continue to use your current medications including your witch ginger pads and Preparation H. Please continue to use your MiraLAX and other stool softeners. Please follow-up with your primary care doctor. If it anytime you develop any new or worsening symptoms please not hesitate to return.
[2024-01-07 00:10] VITALS: BP 120/53; O2SAT 100
== END 2024-01-07 00:02 | disposition home or self-care (01) ==
LOC: EDUNIT# → ED 20:47
DX: K64.4 Residual hemorrhoidal skin tags (principal)
CPT/HCPCS: 99283

== ENCOUNTER 2024-02-14 17:07 | Outpatient (CLI) | payer MEDICARE, OTHER | END 2024-02-14 23:59 | disposition critical access hospital (66) | LOC: EMS 17:07 | DX: R10.13 Epigastric pain (principal); R39.89 Other symptoms and signs involving the genitourinary system | CPT/HCPCS: A0425; A0429 ==

== ENCOUNTER 2024-02-14 17:27 | Emergency (ER) | payer MEDICARE, OTHER ==
--- NOTE | 2024-02-14 17:48 | ED Physician Documentation ---
PD HPI ABD PAIN - Stated complaint Stated Complaint: ABD PX - Chief complaint Chief Complaint: Abd Pain - Additional information Additional information: 73-year-old male with history of anxiety, recurrent abdominal pain, hypertension, early stages dementia, GERD, appendectomy. Patient presents emergency department for about 1 hour of abdominal pain. Patient says the abdominal pain started around dinnertime. He takes MiraLAX and Colace daily and his last BM today was around 1500 and it was normal. Pain is generalized throughout the abdomen no recent fevers or chills no nausea or vomiting when I ask him what his main concern is with the abdominal pain he says it is anxiety. He has a primary care provider and his last visit with her was about 3 to 4 weeks ago. No urinary urgency frequency no CVA tenderness. PD PAST MEDICAL HISTORY - Past Medical History Past Medical History: Yes Cardiovascular: Hypertension Respiratory: None Neuro: Dementia Endocrine/Autoimmune: None GI: GERD, Other : None HEENT: Other Psych: Depression, Anxiety Musculoskeletal: None Derm: None - Past Surgical History Past Surgical History: Yes General: Appendectomy, Other - Present Medications Home Medications: Ambulatory Orders Medication Instructions Recorded Confirmed Simvastatin [Zocor] 20 mg PO HS 08/26/13 01/05/24 Omeprazole [Prilosec] 20 mg PO BID 08/18/15 01/05/24 Escitalopram Oxalate [Lexapro] 20 mg PO DAILY PM 07/16/17 01/05/24 Fluticasone [Flonase] 1 spray [place] BID 07/16/17 01/05/24 Multivit-Min/Iron Fum/Folic AC 1 tab PO DAILY 07/16/17 01/05/24 [Bfryq-Kflotio-Bgzyliys Tablet] Tamsulosin [Flomax] 0.4 mg PO DAILY 07/16/17 01/05/24 clonazePAM [Clonazepam] 2 mg PO TID 08/16/18 01/05/24 Acetaminophen 650 mg PO BID PRN 08/19/18 10/15/23 Ascorbic Acid [Vitamin C] 1,000 mg PO DAILY 08/19/18 01/05/24 Azelastine HCl 1 spray NS BID PRN 08/19/18 01/05/24 Twmfpxjap-Tftpfzq-Gyirjvsi-Pet 1 drops TP QID PRN 08/19/18 01/05/24 [Anbesol Cold Sore Ointment] Clotrimazole [Clotrimazole AF] 1 applic TP DAILY 08/19/18 01/05/24 Magnesium Citrate 296 ml PO DAILY PRN 08/19/18 01/05/24 Polyvinyl Alcohol [Artificial 15 ml OP DAILY 08/19/18 01/05/24 Tears] Psyllium Husk/Aspartame [Metamucil 283 gm PO DAILY PRN 08/19/18 01/05/24 Sugar-Free Powder] Trazodone HCl 100 mg PO HS 08/19/18 01/05/24 Docusate Sodium 100Mg Capsule 100 mg PO DAILY #20 cap 10/15/23 01/05/24 [Colace 100Mg Capsule] Clotrimazole/Betamethasone Crm 1 applic TOP BID PRN 01/05/24 01/05/24 [Lotrisone Cream] Finasteride [Proscar] 5 mg PO DAILY 01/05/24 01/05/24 Gabapentin [Neurontin] 100 mg PO HS 01/05/24 01/05/24 Meloxicam [Mobic] 7.5 mg PO BID PRN 01/05/24 01/05/24 Montelukast [Singulair] 10 mg PO QPM 01/05/24 01/05/24 Prevagen 10 mg ORAL DAILY 01/05/24 01/05/24 polyethylene glycoL 3350 [Miralax] 17 gm PO DAILY 01/05/24 01/05/24 - Allergies Allergies/Adverse Reactions: Allergies Allergy/AdvReac Type Severity Reaction Status Date / Time No Known Drug Allergies Allergy Verified 02/14/24 17:39 - Social History Does the pt smoke?: No Smoking Status: Never smoker Does the pt drink ETOH?: Yes Does the pt have substance abuse?: No - Immunizations Immunizations are current?: Yes - POLST Patient has POLST: No PD ED PE NORMAL - Vitals Vital signs reviewed: Yes - General General: Alert and oriented X 3, No acute distress, Well developed/nourished - HEENT HEENT: Atraumatic - Cardiac Cardiac: RRR - Respiratory Respiratory: No respiratory distress - Abdomen Abdomen: Normal bowel sounds, Soft, Non tender, Non distended, No organomegaly - Male Male : Deferred - Back Back: No CVA TTP Results - Vitals Vitals: Vital Signs - 24 hr 02/14/24 02/14/24 17:33 19:21 Temperature 36.3 C L Heart Rate 57 L 62 Respiratory 17 16 Rate Blood Pressure 131/66 H 135/69 H O2 Saturation 100 98 Oxygen O2 Source Room air PD Medical Decision Making - ED course ED course: 73-year-old male presents emergency department for generalized abdominal di scomfort he is hemodynamically stable given that his abdominal pain has just started around dinnertime I went ahead and gave him some Maalox to see if this would help and patient reports complete resolution in his abdominal discomfort. Patient was told to follow-up with primary care provider and that he can take Maalox [id number] for her ongoing abdominal discomfort he is told to follow-up with primary care provider. I believe that patient safe for discharge if no believe that any labs or imaging is warranted at this time as this appears to be patient's chronic abdominal pain that has now completely resolved. Patient was told to go home and take his prescribed clonazepam for his anxiety return precautions given and patient is safe for discharge at this time. Departure - Departure Disposition: 01 Home, Self Care Clinical Impression: Acid reflux Instructions: GERD Dc Comments: Thank you for trusting us with your care. I do not believe that there is any further workup that is indicated at this time given the fact that your abdominal pain is pretty mild and was alleviated with Maalox. You can follow-up with your primary care provider to see if you need to be started on an antacid medication you could also buy omeprazole [id number] to help with acid reflux as well as Tums. Please come back and if your abdominal pain gets any worse if you start to develop any nausea vomiting fevers or chills or any other concerning emergent symptoms. Forms: PCP List Discharge Date/Time: 02/14/24 19:22
[2024-02-14] MEDS: LIDOCAINE VISCOUS 2% 15 ML UDC MM STA (18:24)
[2024-02-14] MEDS: MAG HYDROX/AL HYDROX/SIMETH 30 ML UDC PO STA (18:25)
[2024-02-14 19:30] VITALS: BP 135/69; O2SAT 98
== END 2024-02-14 19:22 | disposition home or self-care (01) ==
LOC: EDUNIT# → ED 17:27
DX: K21.9 Gastro-esophageal reflux disease without esophagitis (principal); I10 Essential (primary) hypertension; F03.90 Unspecified dementia, unspecified severity, without behavioral disturbance, psychotic disturbance, mood disturbance, and anxiety; F32.A Depression, unspecified; F41.9 Anxiety disorder, unspecified
CPT/HCPCS: 99283; A9270

== ENCOUNTER 2024-02-16 15:27 | Outpatient (CLI) | payer MEDICARE, OTHER | END 2024-02-16 23:59 | disposition critical access hospital (66) | LOC: EMS 15:27 | DX: R45.851 Suicidal ideations (principal) | CPT/HCPCS: A0425; A0429 ==

== ENCOUNTER 2024-02-16 15:45 | Emergency (ER) | payer MEDICARE, OTHER ==
--- NOTE | 2024-02-16 16:01 | ED Physician Documentation ---
History of Present Illness - Stated complaint Stated Complaint: SI - History obtained from History obtained from: Patient, EMS - Additonal information Additional information: 73-year-old gentleman presents by ambulance with suicidal ideation. He lives at [facility] and says he became suicidal in the last few hours because he does not like the food there. He has no access to weapons. And does not have a plan per se. No history of suicide attempt. He says he is medically healthy other than Henriquez's esophagus and depression. He does take clonazepam and Lexapro as well as trazodone. PD PAST MEDICAL HISTORY - Past Medical History Cardiovascular: Hypertension Respiratory: None Neuro: Dementia Endocrine/Autoimmune: None GI: GERD, Other : None HEENT: Other Psych: Depression, Anxiety Musculoskeletal: None Derm: None - Past Surgical History Past Surgical History: Yes General: Appendectomy, Other - Present Medications Home Medications: Ambulatory Orders Medication Instructions Recorded Confirmed Simvastatin [Zocor] 20 mg PO HS 08/26/13 02/16/24 Omeprazole [Prilosec] 20 mg PO BID 08/18/15 02/16/24 Escitalopram Oxalate [Lexapro] 20 mg PO DAILY PM 07/16/17 02/16/24 Fluticasone [Flonase] 1 spray GEORGES BID 07/16/17 01/05/24 Multivit-Min/Iron Fum/Folic AC 1 tab PO DAILY 07/16/17 02/16/24 [Gqyhx-Kllrllw-Qmmxtoir Tablet] Tamsulosin [Flomax] 0.4 mg PO DAILY 07/16/17 02/16/24 clonazePAM [Clonazepam] 2 mg PO TID 08/16/18 02/16/24 Acetaminophen 650 mg PO BID PRN 08/19/18 02/16/24 Ascorbic Acid [Vitamin C] 1,000 mg PO DAILY 08/19/18 02/16/24 Azelastine HCl 1 spray NS BID PRN 08/19/18 02/16/24 Tdurgkklq-Rgkqugr-Hlxpymfh-Pet 1 drops TP QID PRN 08/19/18 02/16/24 [Anbesol Cold Sore Ointment] Magnesium Citrate 296 ml PO DAILY PRN 08/19/18 02/16/24 Polyvinyl Alcohol [Artificial 15 ml OP DAILY 08/19/18 02/16/24 Tears] Psyllium Husk/Aspartame [Metamucil 283 gm PO DAILY PRN 08/19/18 02/16/24 Sugar-Free Powder] Trazodone HCl 100 mg PO HS 08/19/18 02/16/24 Docusate Sodium 100Mg Capsule 100 mg PO DAILY #20 cap 10/15/23 02/16/24 [Colace 100Mg Capsule] Clotrimazole/Betamethasone Crm 1 applic TOP BID PRN 01/05/24 02/16/24 [Lotrisone Cream] Finasteride [Proscar] 5 mg PO DAILY 01/05/24 02/16/24 Gabapentin [Neurontin] 100 mg PO HS 01/05/24 02/16/24 Meloxicam [Mobic] 7.5 mg PO BID PRN 01/05/24 02/16/24 Montelukast [Singulair] 10 mg PO QPM 01/05/24 02/16/24 Prevagen 10 mg ORAL DAILY 01/05/24 02/16/24 polyethylene glycoL 3350 [Miralax] 17 gm PO DAILY 01/05/24 02/16/24 Mirtazapine [Remeron] 15 mg PO QPM #30 tab 02/16/24 - Allergies Allergies/Adverse Reactions: Allergies Allergy/AdvReac Type Severity Reaction Status Date / Time No Known Drug Allergies Allergy Verified 02/14/24 17:39 - Social History Does the pt smoke?: No Smoking Status: Never smoker Does the pt drink ETOH?: Yes Does the pt have substance abuse?: No - Immunizations Immunizations are current?: Yes - POLST Patient has POLST: No PD ED PE NORMAL - Vitals Vital signs reviewed: Yes - General General: Alert and oriented X 3, No acute distress - Respiratory Respiratory: No respiratory distress - Abdomen Abdomen: Normal bowel sounds, Soft, Non tender - Extremities Extremities: No edema, No calf tenderness / cord - Neuro Neuro: Alert and oriented X 3 - Psych Psych: Normal mood, Normal affect Results - Vitals Vitals: Vital Signs - 24 hr 02/16/24 15:55 Temperature 36.4 C L Heart Rate 54 L Respiratory 20 Rate Blood Pressure 111/99 H O2 Saturation 95 Oxygen O2 Source Room air - Labs Labs: Laboratory Tests 02/16/24 02/16/24 02/16/24 16:12 16:12 16:15 WBC 5.2 RBC 4.29 L Hgb 13.0 L Hct 41.3 L MCV 96.3 H MCH 30.3 MCHC 31.5 L RDW 13.4 Plt Count 189 MPV 9.9 Neut # (Auto) 3.2 Lymph # (Auto) 1.5 Sauk # (Auto) 0.3 Eos # (Auto) 0.1 Baso # (Auto) 0.1 Absolute Nucleated RBC 0.00 Nucleated RBC % 0.0 Sodium Potassium Chloride Carbon Dioxide Anion Gap BUN Creatinine Estimated GFR (MDRD) Glucose Calcium Magnesium Total Bilirubin AST ALT Alkaline Phosphatase Total Creatine Kinase Total Protein Albumin Globulin Albumin/Globulin Ratio Lipase TSH Urine Color YELLOW Urine Clarity CLEAR Urine pH 6.5 Ur Specific [place] 1.020 Urine Protein NEGATIVE Urine Glucose (UA) NEGATIVE Urine Ketones NEGATIVE Urine Occult Blood NEGATIVE Urine Nitrite NEGATIVE Urine Bilirubin NEGATIVE Urine Urobilinogen 0.2 (NORMAL) Ur Leukocyte Esterase NEGATIVE Ur Microscopic Review NOT INDICATED Urine Culture Comments NOT INDICATED Salicylates Urine Opiates Screen NEGATIVE Ur Buprenorphine Scrn NEGATIVE Ur Oxycodone Screen NEGATIVE Urine Methadone Screen NEGATIVE Acetaminophen Ur Barbiturates Screen NEGATIVE Ur Tricyclics Screen NEGATIVE Ur Phencyclidine Scrn NEGATIVE Ur Amphetamine Screen NEGATIVE U Methamphetamines Scrn NEGATIVE U Benzodiazepines Scrn POSITIVE H Urine Cocaine Screen NEGATIVE U Cannabinoids Screen NEGATIVE Ur Drug Screen Comment CUTOFF CONC BELOW: Ethyl Alcohol SARS-CoV-2 (PCR) NOT DETECTED 02/16/24 16:15 WBC RBC Hgb Hct MCV MCH MCHC RDW Plt Count MPV Neut # (Auto) Lymph # (Auto) Sauk # (Auto) Eos # (Auto) Baso # (Auto) Absolute Nucleated RBC Nucleated RBC % Sodium 138 Potassium 4.1 Chloride 102 Carbon Dioxide 33 H Anion Gap 3.0 L BUN 23 H Creatinine 0.8 Estimated GFR (MDRD) 95 Glucose 99 Calcium 9.6 Magnesium 2.0 Total Bilirubin 0.4 AST 22 ALT 24 Alkaline Phosphatase 66 Total Creatine Kinase 60 Total Protein 7.4 Albumin 4.2 Globulin 3.2 Albumin/Globulin Ratio 1.3 Lipase 30 TSH 1.11 Urine Color Urine Clarity Urine pH Ur Specific [place] Urine Protein Urine Glucose (UA) Urine Ketones Urine Occult Blood Urine Nitrite Urine Bilirubin Urine Urobilinogen Ur Leukocyte Esterase Ur Microscopic Review Urine Culture Comments Salicylates < 1.5 Urine Opiates Screen Ur Buprenorphine Scrn Ur Oxycodone Screen Urine Methadone Screen Acetaminophen 0.2 Ur Barbiturates Screen Ur Tricyclics Screen Ur Phencyclidine Scrn Ur Amphetamine Screen U Methamphetamines Scrn U Benzodiazepines Scrn Urine Cocaine Screen U Cannabinoids Screen Ur Drug Screen Comment Ethyl Alcohol < 10.0 SARS-CoV-2 (PCR) PD Medical Decision Making - ED course ED course: He seems low risk for suicide, no plan and is forward thinking. He was seen by her telepsychiatric nissan sales consultant who agreed that he is able to be treated as outpatient and is low risk. She does recommend low-dose Remeron and follow-up with a counselor. Departure - Departure Disposition: Home, Self Care Clinical Impression: Grief reaction Condition: Good Instructions: ED Stress React Prescriptions: Mirtazapine [Remeron] 15 mg PO QPM #30 tab Comments: You were seen today by our telepsychiatrist who was recommended starting a medication called Remeron. I prescribed this and sent to the [facility] pharmacy. She also recommended that you get a counselor, the best way to do that would be to coordinate with your primary care physician calling on Sunday for an appointment and a referral for same. Return for new or worsening symptoms.
[2024-02-16 16:04] VITALS: BP 111/99; O2SAT 95
[2024-02-16 16:20] LABS: BASOPHILS # (AUTO) 0.1 10^3/uL (0.0-0.1); EOSINOPHILS # (AUTO) 0.1 10^3/uL (0.0-0.7); EOSINOPHILS % (AUTO) 2.1 %; HCT - HEMATOCRIT 41.3 % (42.0-52.0); LYMPHOCYTES # (AUTO) 1.5 10^3/uL (1.5-3.5); LYMPHOCYTES % (AUTO) 29.4 %; MEAN CORPUSCULAR HEMOGLOBIN 30.3 pg (27.0-31.0); MEAN CORPUSCULAR HGB CONC 31.5 g/dL (32.0-36.0); MEAN CORPUSCULAR VOLUME 96.3 fL (80.0-94.0); MEAN PLATELET VOLUME 9.9 fL (7.4-11.4); MONOCYTES # (AUTO) 0.3 10^3/uL (0.0-1.0); MONOCYTES % (AUTO) 5.9 %; NEUTROPHILS # (AUTO) 3.2 10^3/uL (1.5-6.6); NEUTROPHILS % (AUTO) 61.6 %; PLT - PLATELET COUNT 189 10^3/uL (130-450); RED BLOOD COUNT 4.29 10^6/uL (4.70-6.10); RED CELL DISTRIBUTION WIDTH 13.4 % (12.0-15.0); WHITE BLOOD COUNT 5.2 x10^3/uL (4.8-10.8)
[2024-02-16 16:26] LABS: BILIRUBIN,URINE NEGATIVE (NEGATIVE); GLUCOSE, URINE (UA) NEGATIVE (NEGATIVE); KETONES,URINE (UA) NEGATIVE (NEGATIVE); LEUKOCYTE ESTERASE, URINE NEGATIVE (NEGATIVE); NITRITE,URINE NEGATIVE (NEGATIVE); OCCULT BLOOD,URINE NEGATIVE (NEGATIVE); PH,URINE 6.5 PH (5.0-7.5); PROTEIN,URINE NEGATIVE (NEGATIVE); UROBILINOGEN,URINE 0.2 (NORMAL) E.U./dL (NORMAL)
[2024-02-16 16:31] LABS: CLARITY,URINE CLEAR (CLEAR)
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
[2024-02-16 16:39] LABS: ACETAMINOPHEN 0.2 ug/mL; ALBUMIN 4.2 g/dL (3.2-5.5); ALBUMIN/GLOBULIN RATIO 1.3 (1.0-2.2); ALKALINE PHOSPHATASE 66 IU/L (42-121); ALT ALANINE AMINOTRANSFERASE 24 IU/L (10-60); AST ASPARTATE AMINOTRANSFERASE 22 IU/L (10-42); BILIRUBIN,TOTAL 0.4 mg/dL (0.2-1.0); BUN - BLOOD UREA NITROGEN 23 mg/dL (6-20); CALCIUM 9.6 mg/dL (8.5-10.3); CARBON DIOXIDE - CO2 33 mmol/L (21-32); CHLORIDE 102 mmol/L (101-111); CK- CREATINE KINASE 60 IU/L (30-223); CREATININE 0.8 mg/dL (0.6-1.3); ETOH - ETHANOL < 10.0 mg/dL; GFR - MDRD 95 (>89); GLUCOSE 99 mg/dL (74-104); LIPASE 30 U/L (11-82); POTASSIUM 4.1 mmol/L (3.5-4.5); SODIUM 138 mmol/L (135-145); TOTAL PROTEIN 7.4 g/dL (6.4-8.9)
[2024-02-16 16:39] LABS: AMPHETAMINE SCREEN,URINE NEGATIVE (NEGATIVE); BARBITURATE SCREEN,UR NEGATIVE (NEGATIVE); BENZODIAZEPINES SCREEN, URINE POSITIVE (NEGATIVE); BUPRENORPHINE SCREEN, URINE NEGATIVE (NEGATIVE); COCAINE SCREEN URINE NEGATIVE (NEGATIVE); METHADONE SCREEN, URINE NEGATIVE (NEGATIVE); METHAMPHETAMINES SCREEN, URINE NEGATIVE (NEGATIVE); OPIATE SCREEN, URINE NEGATIVE (NEGATIVE); OXYCODONE SCREEN, URINE NEGATIVE (NEGATIVE); THC CANNABINOID SCREEN, URINE NEGATIVE (NEGATIVE); TRICYCLIC ANTIDEPRESSANT,URINE NEGATIVE (NEGATIVE)
[2024-02-16 16:43] LABS: SALICYLATE < 1.5 mg/dL
[2024-02-16 16:49] LABS: THYROID STIMULATING HORMONE 1.11 uIU/mL (0.34-5.60)
== END 2024-02-16 18:34 | disposition home or self-care (01) ==
LOC: EDUNIT# → ED 15:45
DX: F43.20 Adjustment disorder, unspecified (principal)
CPT/HCPCS: 36415; 80053; 80143; 80306; 81003; 82550; 83690; 83735; 84443; 85025; 87635; 99283; 99284; G0426; G0480; Q3014; 80179; 81001; 82077; 87086; 90834